=== PATIENT | female | born 1925 | race Caucasian/White ===

== ENCOUNTER 2016-10-26 21:16 | Inpatient (IN) | payer OTHER, MEDICARE ==
--- NOTE | 2016-10-26 21:33 | PDOC ---
History of Present Illness - General History Source: Patient, Family Exam Limitations: No Limitations - History of Present Illness Initial Comments: 10/26/16 22:31 The patient is a 89 year old female, with a significant past medical history AFib(on coumadin), VT, CVA (approximately [id number]), diabetes, CHF, hypertension, and hyperlipidemia, who presents to the emergency department complaining of swelling in her bilateral lower extremities, as well as redness in her legs, chest, and face since yesterday. As per daughter, the patient has had intermittent swelling in her legs in the past, however, the rash in her bilateral lower extremities, face, and chest is new. The daughter reports the swelling is alleviated when the patient uses cold packs and elevates her legs. The patient states she is using a walker, and has had difficulty ambulating. The daughter states the patient has had a shuffled gait and has been SOB when walking. The patient denies any associated chest pain, diaphoresis, or palpitations. The daughter states the patient had been coughing phlegm approximately about a week ago. The patient denies any fever, chills, headache or dizziness. The daughter reports increased urinary frequency (on lasix), but denies any dysuria, urgency, or hematuria. Allergies: codeine, Penicillins Past Surgical History: None reported. Social History: Former smoker (quit in 1969). Denies alcohol or drug use. PCP: Dr. Bird ([phone]) <Tashi Washington - Last Filed: 10/26/16 23:23> <Evelin Baltazar - Last Filed: 10/26/16 23:57> - General Stated Complaint: SWOLLEN/RETAINING FLUIDS Time Seen by Provider: 10/26/16 21:32 Past History <Tashi Washington - Last Filed: 10/26/16 23:23> - Past Medical History Cardiac Disorders: Yes (A-FIB) CVA: Yes Diabetes: Yes HTN: Yes Hypercholesterolemia: Yes - Surgical History Abdominal Surgery: Yes - Psycho/Social/Smoking Cessation Hx Anxiety: No Suicidal Ideation: No Smoking Status: No Smoking History: Former smoker Have you smoked in the past 12 months: No Number of Cigarettes Smoked Daily: 0 If you are a former smoker, when did you quit?: 1970 Hx Alcohol Use: No Drug/Substance Use Hx: No Substance Use Type: None Hx Substance Use Treatment: No <Evelin Baltazar - Last Filed: 10/26/16 23:57> - Past Medical History Allergies/Adverse Reactions: Allergies Allergy/AdvReac Type Severity Reaction Status Date / Time codeine [Codeine] Allergy Verified 10/26/16 21:25 Penicillins Allergy Verified 10/26/16 21:25 Home Medications: Ambulatory Orders Beta-Carotene(A) W-C & E/Min [Ocuvite Tablet] 1 each PO DAILY 07/30/13 Calcium 250Mg/Vit-D 125 Units [Oscal 250 mg+D -] 1 combo PO DAILY 07/30/13 Cholecalciferol (Vitamin D3) [Vitamin D -] 2,000 mg PO DAILY 07/30/13 Glucosa Medina 2Kcl/Chondroitin Medina [Glucosamine & Chondroitin Cap] 1,500 mg PO DAILY 07/30/13 Rosuvastatin [Crestor -] 5 mg PO HS 07/30/13 Furosemide [Lasix -] 20 mg PO DAILY #0 tablet 07/31/13 Warfarin Na [Coumadin -] 3 mg PO DAILY 03/20/14 Aspirin [ASA -] 81 mg PO DAILY 06/30/14 Metoprolol Tartrate [Lopressor -] 50 mg PO BID 06/30/14 Olmesartan Medoxomil [Benicar (Nf)] 40 mg PO DAILY 10/04/14 Trolamine Salicylate [Aspercreme] 177.4 ml TP PRN 10/04/14 Ascorbate Calcium [Vitamin C] 500 mg PO DAILY 10/26/16 Ferrous Sulfate [Feosol] 325 mg PO DAILY 10/26/16 Levomefolate/Algal Oil [Deplin-Algal Oil 15 mg Capsule] 1 each PO DAILY Review of Systems - Review of Systems Able to Perform ROS?: Yes Comments:: 10/26/16 22:32 GENERAL/CONSTITUTIONAL: No fever or chills. No weakness. HEAD, EYES, EARS, NOSE AND THROAT: No change in vision. No ear pain or discharge. No sore throat. CARDIOVASCULAR: +SOB on exertion. No chest pain. RESPIRATORY: +Cough. No wheezing or hemoptysis. GASTROINTESTINAL: No nausea, vomiting, diarrhea or constipation. GENITOURINARY: +Frequency. No dysuria. MUSCULOSKELETAL: +Bilateral swelling of lower extremities. No neck or back pain. SKIN: +Rash in bilateral lower extremities, chest, and face NEUROLOGIC: No headache, vertigo, loss of consciousness, or change in strength/ sensation. ENDOCRINE: No increased thirst. No abnormal weight change. HEMATOLOGIC/LYMPHATIC: No anemia, easy bleeding, or history of blood clots. ALLERGIC/IMMUNOLOGIC: No hives or skin allergy. <Tashi Washington - Last Filed: 10/26/16 23:23> *Physical Exam - Vital Signs Last Vital Signs Temp Pulse Resp BP Pulse Ox 98.1 F 117 H 22 161/107 98 10/26/16 21:34 10/26/16 21:34 10/26/16 21:34 10/26/16 21:34 10/26/16 21:34 - Physical Exam Comments: 10/26/16 22:32 GENERAL: Awake, alert, and fully oriented, in no acute distress HEAD: No signs of trauma EYES: PERRLA, EOMI, sclera anicteric, conjunctiva clear ENT: Auricles normal inspection, hearing grossly normal, nares patent, oropharynx clear without exudates. Moist mucosa NECK: Normal ROM, supple, no lymphadenopathy, JVD, or masses LUNGS: Breath sounds equal, clear to auscultation bilaterally. No wheezes, and no crackles HEART: Regular rate and rhythm, normal S1 and S2, no murmurs, rubs or gallops ABDOMEN: Soft, nontender, normoactive bowel sounds. No guarding, no rebound. No masses EXTREMITIES: 3+ pitting bilateral pitting in the lower extremities with chronic stasis changes. Normal range of motion, no edema. No clubbing or cyanosis. No cords, erythema, or tenderness NEUROLOGICAL: Cranial nerves II through XII grossly intact. Normal speech, normal gait SKIN: Diffuse scattered petechiae. Erythematous raised rash to upper chest at the base of the neck that is excoriated. Warm, Dry, no lesions noted. <Tashi Washington - Last Filed: 10/26/16 23:23> ED Treatment Course - LABORATORY CBC & Chemistry Diagram: 10/26/16 22:15 10/26/16 22:15 - ADDITIONAL ORDERS Additional order review: 10/26/16 22:15 RBC 4.36 MCV 95.8 D MCHC 33.2 RDW 15.6 MPV 10.0 Neutrophils % 71.3 Lymphocytes % 17.8 Monocytes % 7.9 Eosinophils % 1.7 D Basophils % 1.3 <Tashi Washington - Last Filed: 10/26/16 23:23> - LABORATORY CBC & Chemistry Diagram: 10/26/16 22:15 10/26/16 22:15 <Evelin Baltazar - Last Filed: 10/26/16 23:57> Medical Decision Making - Medical Decision Making 10/26/16 23:[address] Bird 23:22. <Tashi Washington - Last Filed: 10/26/16 23:23> - Medical Decision Making Case d/w Dr. Bird. No recent dietary indiscretions, med changes (except she was taken off digoxin), chest pain. She is clearly fluid overloaded. I have written for lasix and a owens catheter. Will admit. I also described the rash on her chest- possibly a drug rash or contact dermatitis. <Evelin Baltazar - Last Filed: 10/26/16 23:57> *DC/Admit/Observation/Transfer - Attestations Scribe Attestion: 10/26/16 22:32 Documentation prepared by Tashi Washington, acting as biomedical electronics technician for Evelin Baltazar MD. <Tashi Washington - Last Filed: 10/26/16 23:23> - Discharge Dispostion Admit: Yes <Evelin Baltazar - Last Filed: 10/26/16 23:57> Diagnosis at time of Disposition: Afib Qualifiers: Atrial fibrillation type: chronic Qualified Code(s): I48.2 - Chronic atrial fibrillation - Discharge Dispostion Condition at time of disposition: Stable - Referrals Referrals: Rajan Bird MD [Primary Care Provider] -
[2016-10-26 22:26] LABS: BASOPHIL 1.3 % (0-2.0); EOSINOPHIL 1.7 % (0-4.5); MCH 31.8 pg (25.7-33.7); MCHC 33.2 g/dl (32.0-36.0); MEAN CELL VOLUME 95.8 fl (80-96); NEUTROPHILS 71.3 % (42.8-82.8); PLATELET COUNT 171 K/MM3 (134-434); RDW 15.6 % (11.6-15.6); WHITE BLOOD COUNT 6.1 K/mm3 (4.0-10.0)
[2016-10-26 22:43] LABS: INR 2.28 (0.82-1.09); PROTHROMBIN TIME (PATIENT) 25.5 SEC (9.98-11.88)
[2016-10-26 23:05] LABS: ALBUMIN 3.8 g/dl (3.4-5.0); ANION GAP 13 (8-16); BILIRUBIN,TOTAL 0.9 mg/dL (0.2-1.0); CALCIUM 8.9 mg/dL (8.5-10.1); CO2 24 mmol/L (21-32); CREATININE 0.9 mg/dL (0.55-1.02); GLUCOSE,RANDOM 152 mg/dL (74-106); SGOT/AST 38 U/L (15-37); SGPT/ALT 50 U/L (12-78)
[2016-10-26 23:08] LABS: ALK PHOS 70 U/L (45-117); TOT PROT 6.7 g/dl (6.4-8.2); TROPONIN I < 0.02 ng/ml (0.00-0.05)
[2016-10-26] MEDS ORDERED: FUROSEMIDE 40 MG/4 ML INJECTABLE VIAL IVPUSH ONE (23:12)
[2016-10-26] MEDS ORDERED: TROLAMINE SALICYLATE TP SCH (23:30)
[2016-10-26] MEDS ORDERED: FUROSEMIDE 40 MG/4 ML INJECTABLE VIAL ONE (23:31)
[2016-10-27 00:46] LABS: URINE APPEARANCE CLEAR; URINE BILIRUBIN NEGATIVE (NEGATIVE); URINE BLOOD NEGATIVE (NEGATIVE); URINE COLOR COLORLESS; URINE GLUCOSE (UA) NEGATIVE (NEGATIVE); URINE KETONE NEGATIVE (NEGATIVE); URINE LEUK ESTERASE NEGATIVE (NEGATIVE); URINE NITRITE NEGATIVE (NEGATIVE); URINE PROTEIN NEGATIVE (NEGATIVE); URINE UROBILINOGEN NEGATIVE E.U./dl (0.2-1.0)
[2016-10-27] MEDS ORDERED: ACETAMINOPHEN 325 MG TABLET (FP) PO ONE (01:22)
[2016-10-27] MEDS ORDERED: ACETAMINOPHEN 325 MG TABLET (FP) ONE (01:28)
[2016-10-27 06:42] LABS: BASOPHIL 0.8 % (0-2.0); EOSINOPHIL 1.2 % (0-4.5); MCH 32.8 pg (25.7-33.7); MCHC 34.6 g/dl (32.0-36.0); MEAN CELL VOLUME 94.8 fl (80-96); MEAN PLT VOLUME 8.6 fl (7.5-11.1); NEUTROPHILS 61.1 % (42.8-82.8); PLATELET COUNT 152 K/MM3 (134-434); WHITE BLOOD COUNT 6.3 K/mm3 (4.0-10.0)
[2016-10-27 06:50] LABS: INR 2.4 (0.82-1.09); PROTHROMBIN TIME (PATIENT) 26.9 SEC (9.98-11.88)
[2016-10-27 07:12] LABS: ALBUMIN 3.2 g/dl (3.4-5.0); ANION GAP 7 (8-16); CALCIUM 7.9 mg/dL (8.5-10.1); CO2 29 mmol/L (21-32); GLUCOSE,RANDOM 116 mg/dL (74-106)
[2016-10-27 07:18] LABS: ALK PHOS 67 U/L (45-117); CREATININE 0.8 mg/dL (0.55-1.02); SGOT/AST 33 U/L (15-37); SGPT/ALT 45 U/L (12-78); TROPONIN I 0.02 ng/ml (0.00-0.05)
[2016-10-27] MEDS ORDERED: PATIENT'S OWN MEDICATION (NON-FORMULARY) (Glucosa Su 2kcl/Chondroitin Su [Glucosamine & Ch PO SCH (10:00)
--- NOTE | 2016-10-27 10:29 | HP ---
Admitting History and Physical - Admission Chief Complaint: leg swelling, redness History of Present Illness: 89 yo female, h/o afib, PVD, presented to hospital after dtr noted legs to be very swollen, having difficulty getting up and down stairs and walking. Patient has been on Lasix at home, sometimes requiring increased doses when her legs do swell, but dtr notes that swelling is worse than it has ever been. patient denies any shortness of breath or chest pain, but dtr notes that patient seemed more out of breath after activities. Patient had been having some altered mental status at home, so digoxin was stopped when her level at home was slightly high. (liekly AMS due to age related cognitive changes). No fevers noted. DId have a rash on chest, which seems to have dissipated after receiving IV lasix in ER. Overnight patient notes significant decrease in leg swelling with IV lasix that was given. History Source: Patient, Family Member Limitations to Obtaining History: No Limitations - Past Medical History CARE ADVOCATE: Yes: CVA Cardiovascular: Yes: AFIB, HTN, Hyperlipdemia Musculoskeletal: Yes: Chronic low back pain (spinal stenosis), Other (Upper backache) Endocrine: Yes: Diabetes Mellitus ((diet controlled)) - Smoking History Smoking history: Former smoker Have you smoked in the past 12 months: No Aproximately how many cigarettes per day: 0 If you are a former smoker, when did you quit?: 1969 - Alcohol/Substance Use Hx Alcohol Use: No - Social History Usual Living Arrangement: Yes: With Child Home Medications - Allergies Allergies/Adverse Reactions: Allergies Allergy/AdvReac Type Severity Reaction Status Date / Time codeine [Codeine] Allergy Verified 10/26/16 21:25 Penicillins Allergy Verified 10/26/16 21:25 - Home Medications Home Medications: Ambulatory Orders Beta-Carotene(A) W-C & E/Min [Ocuvite Tablet] 1 each PO DAILY 07/30/13 Calcium 250Mg/Vit-D 125 Units [Oscal 250 mg+D -] 1 combo PO DAILY 07/30/13 Cholecalciferol (Vitamin D3) [Vitamin D -] 2,000 mg PO DAILY 07/30/13 Glucosa Medina 2Kcl/Chondroitin Medina [Glucosamine & Chondroitin Cap] 1,500 mg PO DAILY 07/30/13 Rosuvastatin [Crestor -] 5 mg PO HS 07/30/13 Furosemide [Lasix -] 20 mg PO DAILY #0 tablet 07/31/13 Warfarin Na [Coumadin -] 3 mg PO DAILY 03/20/14 Aspirin [ASA -] 81 mg PO DAILY 06/30/14 Metoprolol Tartrate [Lopressor -] 50 mg PO BID 06/30/14 Olmesartan Medoxomil [Benicar (Nf)] 40 mg PO DAILY 10/04/14 Trolamine Salicylate [Aspercreme] 177.4 ml TP PRN 10/04/14 Ascorbate Calcium [Vitamin C] 500 mg PO DAILY 10/26/16 Ferrous Sulfate [Feosol] 325 mg PO DAILY 10/26/16 Levomefolate/Algal Oil [Deplin-Algal Oil 15 mg Capsule] 1 each PO DAILY Family Disease History - Family Disease History Family Disease History: Heart Disease: Brother ([place]) Review of Systems - Review of Systems Constitutional: denies: Fever, Lethargy, Loss of Appetite Eyes: reports: No Symptoms HENT: denies: Difficult Swallowing, Epistaxis Cardiovascular: denies: Chest Pain, Palpitations Respiratory: reports: SOB on Exertion. denies: Wheezing Gastrointestinal: denies: Abdominal Pain, Bloating, Diarrhea, Nausea, Vomiting Genitourinary: denies: Burning, Discharge, Dysuria Physical Examination Vital Signs: Vital Signs Temperature 98.1 F 10/27/16 02:00 Pulse Rate 90 10/27/16 05:55 Respiratory Rate 16 10/27/16 05:55 Blood Pressure 161/96 10/27/16 05:55 O2 Sat by Pulse Oximetry (%) 93 L 10/27/16 05:55 Constitutional: Yes: Well Nourished, No Distress, Calm Eyes: Yes: Conjunctiva Clear, EOM Intact, PERRL HENT: Yes: Atraumatic, Normocephalic Neck: Yes: Supple, Trachea Midline Cardiovascular: Yes: Pulse Irregular, S1, S2. No: Murmur Respiratory: Yes: Regular, CTA Bilaterally. No: Rhonchi, Wheezes Gastrointestinal: Yes: Normal Bowel Sounds, Soft. No: Distention, Tenderness Edema: Yes Edema: LLE: 2+, RLE: 2+ Integumentary: Yes: Rash (fading maculopapular rash on chest) Neurological: Yes: Alert, Oriented Labs: CBC, BMP 10/27/16 06:15 10/27/16 06:15 Imaging - Results Chest X-ray: Report Reviewed (congestive changes noted) Problem List - Problems (1) Congestive heart failure (CHF) Assessment/Plan: -check echo -IV lasix, cardio eval -on ARB Code(s): I50.9 - HEART FAILURE, UNSPECIFIED Qualifiers: Congestive heart failure type: diastolic (2) Atrial fibrillation with rapid ventricular response Assessment/Plan: -follow with IV lasix -cont coumadin, B-carli for rate control Code(s): I48.91 - UNSPECIFIED ATRIAL FIBRILLATION (3) CVA (cerebrovascular accident) Assessment/Plan: -h/o CVA -on coumadin for Afib Code(s): I63.9 - CEREBRAL INFARCTION, UNSPECIFIED (4) Hyperlipidemia Assessment/Plan: -cont statin Code(s): E78.5 - HYPERLIPIDEMIA, UNSPECIFIED (5) Hypertension Assessment/Plan: -on metoprolol and diovan Code(s): I10 - ESSENTIAL (PRIMARY) HYPERTENSION
[2016-10-27] MEDS ORDERED: VALSARTAN 80 MG TABLET (UD) ONE (10:36)
[2016-10-27] MEDS: METOPROLOL TARTRATE 50 MG TABLET (FP) PO SCH ×2 (10:45→22:19)
[2016-10-27] MEDS: ASPIRIN 81 MG CHEWABLE TABLETS PO SCH (10:45)
[2016-10-27] MEDS: FERROUS SO4 325 MG TABLET (FP) PO SCH (10:45)
[2016-10-27] MEDS: FUROSEMIDE 40 MG/4 ML INJECTABLE VIAL IVPUSH SCH (10:45)
[2016-10-27] MEDS: CHOLECALCIFEROL (VITAMIN D3) 400 UNIT TABLET (FP) PO SCH (10:45)
[2016-10-27] MEDS: CALCIUM 250MG/VIT-D 125 UNITS 1 COMBO TABLET PO SCH (10:45)
[2016-10-27] MEDS: ASCORBIC ACID 500 MG TABLET (FP) PO SCH (10:45)
[2016-10-27] MEDS: VALSARTAN 160 MG TABLET (UD) PO SCH (10:45)
[2016-10-27] MEDS: DONEPEZIL HCL 10 MG TABLET (FP) PO SCH (11:38)
--- NOTE | 2016-10-27 11:53 | CON.CARD ---
Consult Consult Specialty:: Cardiology Referred by:: Dr. Bird Reason for Consultation:: Edema - History of Present Illness Chief Complaint: Edema, redness History of Present Illness: 89 year old woman with a history of HTN, HLD, DM II, Severe LVH, CAD-non- obstructive on cardiac cath 2013, Afib on coumadin, CVA, chronic diastolic CHF admitted with b/l LE edema, and total body redness, dyspnea on exertion. Pt. seen and examined today in nad. she states that she is already feeling better. her LE is significantly improved.. no sob at rest. 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 Cardio/Vascular: Yes: AFIB, CHF (chronic diastolic), HTN, Hyperlipdemia, Other ( left ventricular hypertrophy) Musculoskeletal: Yes: Chronic low back pain (spinal stenosis), Other (Upper backache) Endocrine: Yes: Diabetes Mellitus ((diet controlled)) - Alcohol/Substance Use Hx Alcohol Use: No - Smoking History Smoking history: Former smoker Have you smoked in the past 12 months: No Aproximately how many cigarettes per day: 0 If you are a former smoker, when did you quit?: 1969 - Social History Usual Living Arrangement: With Child ADL: Family Assistance History of Recent Travel: No Home Medications - Allergies Allergies/Adverse Reactions: Allergies Allergy/AdvReac Type Severity Reaction Status Date / Time codeine [Codeine] Allergy Verified 10/26/16 21:25 Penicillins Allergy Verified 10/26/16 21:25 - Home Medications Home Medications: Ambulatory Orders Beta-Carotene(A) W-C & E/Min [Ocuvite Tablet] 1 each PO DAILY 07/30/13 Calcium 250Mg/Vit-D 125 Units [Oscal 250 mg+D -] 1 combo PO DAILY 07/30/13 Cholecalciferol (Vitamin D3) [Vitamin D -] 2,000 mg PO DAILY 07/30/13 Glucosa Medina 2Kcl/Chondroitin Medina [Glucosamine & Chondroitin Cap] 1,500 mg PO DAILY 07/30/13 Rosuvastatin [Crestor -] 5 mg PO HS 07/30/13 Furosemide [Lasix -] 20 mg PO DAILY #0 tablet 07/31/13 Warfarin Na [Coumadin -] 3 mg PO DAILY 03/20/14 Aspirin [ASA -] 81 mg PO DAILY 06/30/14 Metoprolol Tartrate [Lopressor -] 50 mg PO BID 06/30/14 Olmesartan Medoxomil [Benicar (Nf)] 40 mg PO DAILY 10/04/14 Trolamine Salicylate [Aspercreme] 177.4 ml TP PRN 10/04/14 Ascorbate Calcium [Vitamin C] 500 mg PO DAILY 10/26/16 Ferrous Sulfate [Feosol] 325 mg PO DAILY 10/26/16 Levomefolate/Algal Oil [Deplin-Algal Oil 15 mg Capsule] 1 each PO DAILY Donepezil HCl [Aricept -] 0 mg PO DAILY 10/27/16 Family Disease History - Family Disease History Family Disease History: Heart Disease: Brother ([place]) Review of Systems - Review of Systems Constitutional: reports: Weakness. denies: No Symptoms, Chills, Diaphoresis, Fever, Lethargy, Loss of Appetite, Malaise, Night Sweats, Unintentional Wgt. Loss, Other Eyes: denies: No Symptoms, Blind Spots, Blurred Vision, Double Vision, Eye Pain , Floaters, Photophobia, Recent Change in Vision, Other HENT: denies: No Symptoms, Difficult Swallowing, Ear Discharge, Ear Pain, Epistaxis, Gingival Bleeding, Hearing Loss, Mouth Swelling, Nasal Congestion, Ocular Prosthesis, Throat Pain, Toothache, Ringing in Ears, Other Neck: denies: No Symptoms, Decreased ROM, Lumps, Pain on Movement, Stiffness, Swollen Glands, Tenderness, Other Cardiovascular: reports: Edema, Shortness of Breath. denies: No Symptoms, Chest Pain, Palpitations, Other Respiratory: reports: Exercise Intolerance, SOB, SOB on Exertion. denies: No Symptoms, Cough, Hemoptysis, Orthopnea, PND, Snoring, Wheezing, Other Gastrointestinal: denies: No Symptoms, Abdominal Pain, Bloating, Constipation, Diarrhea, Dysphagia, Indigestion, Melena, Nausea, Rectal Bleeding, Vomiting, Vomiting Blood, Other Genitourinary: denies: No Symptoms, Burning, Discharge, Dysuria, Flank Pain, Frequency, Hematuria, Incontinence, Lesions, Menses, Pain, Testicular Mass, Testicular Pain, Testicular Swelling, Urgency, Vaginal Bleeding, Other Breasts: denies: No Symptoms Reported, See HPI, Breast Implants, Discharge from Nipple, Lumps, Pain, Skin Changes, Other Musculoskeletal: denies: No Symptoms, Back Pain, Crepitus, Decreased ROM, Extremity Pain, Joint Pain, Joint Swelling, Muscle Pain, Muscle Cramps, Muscle Weakness, Other Integumentary: denies: No Symptoms, Blister, Bruising, Change in Color, Eczema, Erythema, Incision, Lesions, Lump, Pallor, Pruritis, Rash, Wound, Other Neurological: denies: No Symptoms, Change in LOC, Change in Speech, Confusion, Dizziness, Headache, Incoordination, Numbness, Parasthesia, Pre-Existing Deficit , Seizure, Syncope, Tremors, Unsteady Gait, Weakness, Other Endocrine: denies: No Symptoms, Excessive Sweating, Flushing, Increased Hunger, Increased Thirst, Intolerance to Cold, Intolerance to Heat, Unexplained Weight Gain, Unexplained Weight Loss, Other Hematology/Lymphatic: denies: No Symptoms, Easily Bruised, Excessive Bleeding, Swollen Glands, Other Psychiatric: denies: No Symptoms, Altered Sleep Pattern, Anxiety, Depression, Hallucinations, Panic, Paranoia, Suicidal, Other - Risk Factors Known Risk Factors: Yes: Age, Hypercholesterolemia, Hypertension Vital Signs: Vital Signs Temperature 98.1 F 10/27/16 02:00 Pulse Rate 90 10/27/16 05:55 Respiratory Rate 16 10/27/16 05:55 Blood Pressure 161/96 10/27/16 05:55 O2 Sat by Pulse Oximetry (%) 93 L 10/27/16 05:55 Constitutional: Yes: Well Nourished, No Distress, Calm Eyes: Yes: WNL, Conjunctiva Clear, EOM Intact, PERRL HENT: Yes: WNL, Atraumatic, Normocephalic Neck: Yes: WNL, Supple, Trachea Midline Respiratory: Yes: Regular, Diminished, SOB on Exertion. No: Rales, Rhonchi, Wheezes Gastrointestinal: Yes: WNL, Normal Bowel Sounds, Soft. No: Distention, Tenderness Renal/: Yes: WNL Cardiovascular: Yes: Pulse Irregular. No: Bradycardia, Tachycardia, Gallop, Rub , Varicosities JVD: No Carotid Bruit: No PMI: Non-Displaced Heart Sounds: Yes: S1, S2. No: Split S2, S3, S4, Clicks, Gallop, Rub, Bruit Murmur: No: Systolic Murmur, Diastolic Murmur Musculoskeletal: Yes: Muscle Weakness Extremities: Yes: WNL Edema: Yes Edema: LLE: Trace, RLE: Trace Peripheral Pulses WNL: Yes Peripheral Pulses: 2+ Left Doralis Pedis, 2+ Right Dorsalis Pedis Integumentary: Yes: WNL Neurological: Yes: Alert, Oriented Psychiatric: Yes: Alert, Oriented - Other Data Labs, Other Data: CBC, BMP 10/27/16 06:15 10/27/16 06:15 INR, PTT INR 2.40 (0.82-1.09) H 10/27/16 06:15 Troponin, BNP 10/27/16 06:15 Troponin I 0.02 Troponin, BNP 10/27/16 06:15 Troponin I 0.02 ekg-not in chart, will review Echo: Report Reviewed Imaging - Results Chest X-ray: Report Reviewed, Image Reviewed EKG: Report Reviewed, Image Reviewed Other: Report Reviewed, Image Reviewed Problem List - Problems (1) Afib Code(s): I48.91 - UNSPECIFIED ATRIAL FIBRILLATION Qualifiers: Atrial fibrillation type: chronic Qualified Code(s): I48.2 - Chronic atrial fibrillation (2) CVA (cerebrovascular accident) Code(s): I63.9 - CEREBRAL INFARCTION, UNSPECIFIED (3) Congestive heart failure (CHF) Code(s): I50.9 - HEART FAILURE, UNSPECIFIED Qualifiers: Congestive heart failure type: diastolic (4) Dyspnea on exertion Code(s): R06.09 - OTHER FORMS OF DYSPNEA (5) Hyperlipidemia Code(s): E78.5 - HYPERLIPIDEMIA, UNSPECIFIED (6) Hypertension Code(s): I10 - ESSENTIAL (PRIMARY) HYPERTENSION (7) Peripheral edema Code(s): R60.9 - EDEMA, UNSPECIFIED Assessment/Plan 89 year old woman with a history of HTN, HLD, DM II, LVH, [id number] on cardiac cath 2013, Afib on coumadin, CVA, chronic diastolic CHF admitted with b/l LE edema, and total body redness, dyspnea on exertion. Edema/dyspnea on exertion -likely acute on chronic diastolic CHF -improving significantly with IV Lasix -cont IV lasix at current dose -monitor strict I/Os and daily weights -echo tomorrow to re-evaluate for structural heart disease Atrial fibrillation-HR is currently adequately controlled -digoxin stopped as outpatient level reportedly elevated with possible contribution to AMS -cont bblocker -cont coumadin for goal INR 2-3 -monitor HR and plan to adjust meds as needed HTN-above goal -cont metoprolol and diovan
[2016-10-27 12:06] VITALS: BMI 27.3
[2016-10-27] MEDS ORDERED: WARFARIN NA 1 MG TABLET (FP) ONE (18:40)
[2016-10-27] MEDS: WARFARIN NA 3 MG TABLET PO SCH (18:41)
[2016-10-27] MEDS ORDERED: QUEtiapine FUMARATE 25 MG TABLET (FP) PO PRN (21:22)
[2016-10-27] MEDS ORDERED: POTASSIUM CHLORIDE TABS 20 MEQ TABLET.ER (FP) PO ONE (21:22)
[2016-10-27] MEDS: ROSUVASTATIN CA 5 MG TABLET (FP) PO SCH (22:19)
--- NOTE | 2016-10-27 23:26 | EKG ---
Test Reason : Blood Pressure : / mmHG Vent. Rate : 096 BPM Atrial Rate : 081 BPM P-R Int : 000 ms QRS Dur : 082 ms QT Int : 360 ms P-R-T Axes : 000 022 120 degrees QTc Int : 454 ms ATRIAL FIBRILLATION CANNOT RULE OUT ANTERIOR INFARCT , AGE UNDETERMINED ABNORMAL ECG WHEN COMPARED WITH ECG OF 04-OCT-2014 15:55, Confirmed by TAPAN BURRIS MD ([id number]) on 10/27/2016 11:25:51 PM Referred By: Confirmed By:TAPAN BURRIS MD
[2016-10-28] MEDS ORDERED: LORazepam 0.5 MG TABLET ONE (00:26)
[2016-10-28] MEDS ORDERED: LORazepam 0.5 MG TABLET PO ONE (00:30)
[2016-10-28 07:20] LABS: INR 2.42 (0.82-1.09); PROTHROMBIN TIME (PATIENT) 27.1 SEC (9.98-11.88)
[2016-10-28 08:24] LABS: CREATININE 0.8 mg/dL (0.55-1.02)
[2016-10-28] MEDS: FUROSEMIDE 40 MG/4 ML INJECTABLE VIAL IVPUSH SCH (09:34)
[2016-10-28] MEDS: METOPROLOL TARTRATE 50 MG TABLET (FP) PO SCH ×2 (09:34→21:22)
[2016-10-28] MEDS: VALSARTAN 160 MG TABLET (UD) PO SCH (09:35)
[2016-10-28] MEDS: ASPIRIN 81 MG CHEWABLE TABLETS PO SCH (09:35)
[2016-10-28] MEDS: CALCIUM 250MG/VIT-D 125 UNITS 1 COMBO TABLET PO SCH (09:35)
[2016-10-28] MEDS: DONEPEZIL HCL 10 MG TABLET (FP) PO SCH (09:35)
[2016-10-28] MEDS: ASCORBIC ACID 500 MG TABLET (FP) PO SCH (09:35)
[2016-10-28] MEDS: CHOLECALCIFEROL (VITAMIN D3) 400 UNIT TABLET (FP) PO SCH (09:35)
[2016-10-28] MEDS: FERROUS SO4 325 MG TABLET (FP) PO SCH (09:35)
[2016-10-28] MEDS ORDERED: POTASSIUM CHLORIDE TABS 20 MEQ TABLET.ER (FP) PO SCH (10:00)
--- NOTE | 2016-10-28 12:07 | PN ---
Progress Note, Physician History of Present Illness: seen and examined today, sleeping. daughter at bedside states pt did not sleep all night, was confused last night, given some sedatives, finally fell asleep this am. daughter states her LE edema is better. - Current Medication List Current Medications: Active Medications Ascorbic Acid (Vitamin C -) 500 mg PO DAILY [facility] Last Admin: 10/28/16 09:35 Dose: 500 mg Aspirin (Asa -) 81 mg PO DAILY [facility] Last Admin: 10/28/16 09:35 Dose: 81 mg Calcium/Vitamin D (Oscal 250 Mg+D -) 1 tab PO DAILY [facility] Last Admin: 10/28/16 09:35 Dose: 1 tab Cholecalciferol (Vitamin D3 -) 400 unit PO DAILY [facility] Last Admin: 10/28/16 09:35 Dose: 400 unit Donepezil HCl (Aricept -) 10 mg PO DAILY [facility] Last Admin: 10/28/16 09:35 Dose: 10 mg Ferrous Sulfate (Feosol -) 325 mg PO DAILY [facility] Last Admin: 10/28/16 09:35 Dose: 325 mg Furosemide (Lasix Injection -) 40 mg IVPUSH DAILY [facility] Last Admin: 10/28/16 09:34 Dose: 40 mg Metoprolol Tartrate (Lopressor -) 50 mg PO BID [facility] Last Admin: 10/28/16 09:34 Dose: 50 mg Non-Formulary Medication (Beta-Carotene(A) W-C & E/Min [Ocuvite Tablet]) 1 each PO DAILY [facility] Non-Formulary Medication (Glucosa [place] 2kcl/Chondroitin [place] [Glucosamine & Chondroitin Cap]) 1,500 mg PO DAILY [facility] Non-Formulary Medication (Trolamine Salicylate [Aspercreme]) 177.4 ml TP PRN [facility] Potassium Chloride (K-Dur -) 20 meq PO DAILY [facility] Last Admin: 10/28/16 09:35 Dose: 20 meq Quetiapine Fumarate (Seroquel -) 12.5 mg PO HS PRN PRN Reason: AGITATION Last Admin: 10/27/16 22:20 Dose: 12.5 mg Rosuvastatin Calcium (Crestor -) 5 mg PO HS [facility] Last Admin: 10/27/16 22:19 Dose: 5 mg Valsartan (Diovan -) 320 mg PO DAILY [facility] Last Admin: 10/28/16 09:35 Dose: 320 mg Warfarin Sodium (Coumadin -) 3 mg PO DAILY@1800 [facility] Last Admin: 10/27/16 18:41 Dose: 3 mg - Objective Vital Signs: Vital Signs Temperature 98.1 F 10/28/16 07:44 Pulse Rate 97 H 10/28/16 07:44 Respiratory Rate 18 10/28/16 07:49 Blood Pressure 139/82 10/28/16 07:44 O2 Sat by Pulse Oximetry (%) 99 10/28/16 07:49 Constitutional: Yes: Well Nourished, No Distress, Calm Eyes: Yes: WNL, Conjunctiva Clear, EOM Intact, PERRL HENT: Yes: WNL, Atraumatic, Normocephalic Neck: Yes: WNL, Supple, Trachea Midline Cardiovascular: Yes: Pulse Irregular, S1, S2. No: Regular Rate and Rhythm, Bradycardia, Tachycardia, Bruit, JVD, Gallop, Murmur, Rub, S3, S4, Varicosities Respiratory: Yes: Regular, Diminished, Rales. No: Rhonchi, SOB, Wheezes Gastrointestinal: Yes: WNL, Normal Bowel Sounds, Soft. No: Distention, Tenderness Musculoskeletal: Yes: WNL Extremities: Yes: WNL Edema: Yes Edema: LLE: Trace, RLE: Trace Peripheral Pulses WNL: Yes Peripheral Pulses: Left Doralis Pedis: 2+, Right Dorsalis Pedis: 2+ Integumentary: Yes: WNL Neurological: Yes: WNL, Alert, Oriented, Cran Nerves II-XII Intact ...Motor Strength: WNL Psychiatric: Yes: WNL, Alert, Oriented Labs: CBC, BMP 10/27/16 06:15 10/28/16 05:35 INR, PTT INR 2.42 (0.82-1.09) H 10/28/16 05:35 - ....Imaging Chest X-ray: Report Reviewed, Image Reviewed EKG: Report Reviewed, Image Reviewed Other: Report Reviewed, Image Reviewed (tele-AFib, HR controlled, episode rvr around 3am) Problem List - Problems (1) Afib Code(s): I48.91 - UNSPECIFIED ATRIAL FIBRILLATION Qualifiers: Atrial fibrillation type: chronic Qualified Code(s): I48.2 - Chronic atrial fibrillation (2) CVA (cerebrovascular accident) Code(s): I63.9 - CEREBRAL INFARCTION, UNSPECIFIED (3) Congestive heart failure (CHF) Code(s): I50.9 - HEART FAILURE, UNSPECIFIED Qualifiers: Congestive heart failure type: diastolic (4) Dyspnea on exertion Code(s): R06.09 - OTHER FORMS OF DYSPNEA (5) Hyperlipidemia Code(s): E78.5 - HYPERLIPIDEMIA, UNSPECIFIED (6) Hypertension Code(s): I10 - ESSENTIAL (PRIMARY) HYPERTENSION (7) Peripheral edema Code(s): R60.9 - EDEMA, UNSPECIFIED Assessment/Plan 89 year old woman with a history of HTN, HLD, DM II, LVH, [id number] on cardiac cath 2013, Afib on coumadin, CVA, chronic diastolic CHF admitted with b/l LE edema, and total body redness, dyspnea on exertion. Edema/dyspnea on exertion-likely acute on chronic diastolic CHF -improving -cont IV lasix at current dose -monitor strict I/Os and daily weights -f/up echo to re-evaluate for structural heart disease Atrial fibrillation-HR is currently adequately controlled -digoxin stopped as outpatient level reportedly elevated with possible contribution to AMS -cont bblocker at current dose for now -cont coumadin for goal INR 2-3 -monitor HR and plan to adjust meds as needed HTN-adequately controlled for now -cont metoprolol and diovan
--- NOTE | 2016-10-28 17:27 | PN ---
Progress Note, Physician Chief Complaint: Patient very lethargic but arousable. Daughter at bedside states patient was awake most of the night. States leg swelling is better. - Current Medication List Current Medications: Active Medications Ascorbic Acid (Vitamin C -) 500 mg PO DAILY [facility] Last Admin: 10/28/16 09:35 Dose: 500 mg Aspirin (Asa -) 81 mg PO DAILY [facility] Last Admin: 10/28/16 09:35 Dose: 81 mg Calcium/Vitamin D (Oscal 250 Mg+D -) 1 tab PO DAILY [facility] Last Admin: 10/28/16 09:35 Dose: 1 tab Cholecalciferol (Vitamin D3 -) 400 unit PO DAILY [facility] Last Admin: 10/28/16 09:35 Dose: 400 unit Donepezil HCl (Aricept -) 10 mg PO DAILY [facility] Last Admin: 10/28/16 09:35 Dose: 10 mg Ferrous Sulfate (Feosol -) 325 mg PO DAILY [facility] Last Admin: 10/28/16 09:35 Dose: 325 mg Furosemide (Lasix Injection -) 40 mg IVPUSH DAILY [facility] Last Admin: 10/28/16 09:34 Dose: 40 mg Metoprolol Tartrate (Lopressor -) 50 mg PO BID [facility] Last Admin: 10/28/16 09:34 Dose: 50 mg Non-Formulary Medication (Beta-Carotene(A) W-C & E/Min [Ocuvite Tablet]) 1 each PO DAILY [facility] Non-Formulary Medication (Glucosa [place] 2kcl/Chondroitin [place] [Glucosamine & Chondroitin Cap]) 1,500 mg PO DAILY [facility] Non-Formulary Medication (Trolamine Salicylate [Aspercreme]) 177.4 ml TP PRN [facility] Potassium Chloride (K-Dur -) 20 meq PO BID [facility] Quetiapine Fumarate (Seroquel -) 12.5 mg PO HS PRN PRN Reason: AGITATION Last Admin: 10/27/16 22:20 Dose: 12.5 mg Rosuvastatin Calcium (Crestor -) 5 mg PO HS [facility] Last Admin: 10/27/16 22:19 Dose: 5 mg Valsartan (Diovan -) 320 mg PO DAILY [facility] Last Admin: 10/28/16 09:35 Dose: 320 mg Warfarin Sodium (Coumadin -) 3 mg PO DAILY@1800 [facility] Last Admin: 10/27/16 18:41 Dose: 3 mg - Objective Vital Signs: Vital Signs Temperature 98.4 F 10/28/16 14:00 Pulse Rate 82 10/28/16 14:00 Respiratory Rate 20 10/28/16 14:00 Blood Pressure 118/66 10/28/16 14:00 O2 Sat by Pulse Oximetry (%) 99 10/28/16 07:49 Constitutional: Yes: No Distress, Other (lethargic) Cardiovascular: Yes: Pulse Irregular. No: Tachycardia, Gallop, Murmur, Rub Respiratory: Yes: Regular, CTA Bilaterally. No: Rales, Rhonchi, Wheezes Gastrointestinal: Yes: Normal Bowel Sounds, Soft. No: Distention, Tenderness Extremities: Yes: WNL Edema: No Labs: CBC, BMP 10/27/16 06:15 10/28/16 05:35 INR, PTT INR 2.42 (0.82-1.09) H 10/28/16 05:35 Assessment/Plan (1) Congestive heart failure (CHF) Assessment/Plan: -ECHO c/w diastolic dysfunction -cardiology following and diuresing -continue diovan and lopressor -continue IV lasix per cardiology Code(s): I50.9 - HEART FAILURE, UNSPECIFIED Qualifiers: Congestive heart failure type: diastolic (2) Atrial fibrillation with rapid ventricular response Assessment/Plan: -rate controlled -therapeutic on coumadin -continue lopressor Code(s): I48.91 - UNSPECIFIED ATRIAL FIBRILLATION (3) CVA (cerebrovascular accident) Assessment/Plan: -h/o CVA -on coumadin for Afib Code(s): I63.9 - CEREBRAL INFARCTION, UNSPECIFIED (4) Hyperlipidemia Assessment/Plan: -cont statin Code(s): E78.5 - HYPERLIPIDEMIA, UNSPECIFIED (5) Hypertension Assessment/Plan: -on metoprolol and diovan Code(s): I10 - ESSENTIAL (PRIMARY) HYPERTENSION (6) Hypokalemia -change to bid potassium
[2016-10-28] MEDS: WARFARIN NA 3 MG TABLET PO SCH (17:39)
[2016-10-28] MEDS: POTASSIUM CHLORIDE TABS 20 MEQ TABLET.ER (FP) PO SCH (21:21)
[2016-10-28] MEDS: ROSUVASTATIN CA 5 MG TABLET (FP) PO SCH (23:30)
[2016-10-29 07:43] LABS: BASOPHIL 0.8 % (0-2.0); EOSINOPHIL 2.1 % (0-4.5); MCH 32.1 pg (25.7-33.7); MCHC 33.7 g/dl (32.0-36.0); MEAN CELL VOLUME 95.3 fl (80-96); MEAN PLT VOLUME 9.4 fl (7.5-11.1); NEUTROPHILS 61.5 % (42.8-82.8); PLATELET COUNT 166 K/MM3 (134-434); RDW 15.3 % (11.6-15.6); WHITE BLOOD COUNT 6.6 K/mm3 (4.0-10.0)
[2016-10-29 08:23] LABS: CALCIUM 8.2 mg/dL (8.5-10.1); CREATININE 0.8 mg/dL (0.55-1.02); MAGNESIUM 2.2 mg/dL (1.8-2.4); PHOSPHOROUS 3.2 mg/dL (2.5-4.9)
--- NOTE | 2016-10-29 09:48 | PN ---
Progress Note, Physician Chief Complaint: appears comfortable TELE: AF with average rate 90s. No sig. pauses or sustained elevated rates. History of Present Illness: diuresed well according to Is and Os - Current Medication List Current Medications: Active Medications Ascorbic Acid (Vitamin C -) 500 mg PO DAILY [facility] Last Admin: 10/28/16 09:35 Dose: 500 mg Aspirin (Asa -) 81 mg PO DAILY [facility] Last Admin: 10/28/16 09:35 Dose: 81 mg Calcium/Vitamin D (Oscal 250 Mg+D -) 1 tab PO DAILY [facility] Last Admin: 10/28/16 09:35 Dose: 1 tab Cholecalciferol (Vitamin D3 -) 400 unit PO DAILY [facility] Last Admin: 10/28/16 09:35 Dose: 400 unit Donepezil HCl (Aricept -) 10 mg PO DAILY [facility] Last Admin: 10/28/16 09:35 Dose: 10 mg Ferrous Sulfate (Feosol -) 325 mg PO DAILY [facility] Last Admin: 10/28/16 09:35 Dose: 325 mg Furosemide (Lasix Injection -) 40 mg IVPUSH DAILY [facility] Last Admin: 10/28/16 09:34 Dose: 40 mg Metoprolol Tartrate (Lopressor -) 50 mg PO BID [facility] Last Admin: 10/28/16 21:22 Dose: 50 mg Potassium Chloride (K-Dur -) 20 meq PO BID [facility] Last Admin: 10/28/16 21:21 Dose: 20 meq Quetiapine Fumarate (Seroquel -) 12.5 mg PO HS PRN PRN Reason: AGITATION Last Admin: 10/27/16 22:20 Dose: 12.5 mg Rosuvastatin Calcium (Crestor -) 5 mg PO HS [facility] Last Admin: 10/28/16 23:30 Dose: 5 mg Valsartan (Diovan -) 320 mg PO DAILY [facility] Last Admin: 10/28/16 09:35 Dose: 320 mg Warfarin Sodium (Coumadin -) 3 mg PO DAILY@1800 [facility] Last Admin: 10/28/16 17:39 Dose: 3 mg - Objective Vital Signs: Vital Signs Temperature 98.3 F 10/29/16 05:46 Pulse Rate 96 H 10/29/16 05:46 Respiratory Rate 20 10/29/16 05:46 Blood Pressure 154/86 10/29/16 05:46 O2 Sat by Pulse Oximetry (%) 99 10/28/16 21:00 Constitutional: Yes: No Distress Cardiovascular: Yes: Pulse Irregular Respiratory: Yes: Other (slight decreased breath sounds at bases o/w clear) Gastrointestinal: Yes: Soft Edema: Yes Edema: LLE: Trace, RLE: Trace Neurological: Yes: Alert Labs: CBC, BMP 10/29/16 05:40 10/29/16 05:40 INR, PTT INR 2.42 (0.82-1.09) H 10/28/16 05:35 Laboratory Tests 10/26/16 10/27/16 10/28/16 22:15 06:15 05:35 WBC Hct Plt Count INR 2.42 H Sodium Potassium BUN Creatinine Magnesium Troponin I < 0.02 0.02 10/29/16 10/29/16 05:40 05:40 WBC 6.6 Hct 42.7 Plt Count 166 INR Sodium 142 Potassium 3.8 D BUN 23 H Creatinine 0.8 Magnesium 2.2 D Troponin I - ....Imaging EKG: Image Reviewed Assessment/Plan Assessment/Plan 89 year old woman with a history of HTN, HLD, DM II, LVH, [id number] on cardiac cath 2013, Afib on coumadin, CVA, chronic diastolic CHF admitted with b/l LE edema, dyspnea on exertion. Edema/dyspnea on exertion-likely acute on chronic diastolic CHF -improving -cont IV lasix for today and switch to PO tomorrow. On ARB. -f/up echo showed normal LVEF but increased atrial size c/w worsened diastolic CHF, elevated EDP (likely chronic). Atrial fibrillation-HR is currently adequately controlled -digoxin stopped as outpatient level reportedly elevated with possible contribution to AMS -cont bblocker at current dose for now -cont coumadin for goal INR 2-3
[2016-10-29] MEDS: ASCORBIC ACID 500 MG TABLET (FP) PO SCH (11:05)
[2016-10-29] MEDS: CHOLECALCIFEROL (VITAMIN D3) 400 UNIT TABLET (FP) PO SCH (11:05)
[2016-10-29] MEDS: ASPIRIN 81 MG CHEWABLE TABLETS PO SCH (11:06)
[2016-10-29] MEDS: VALSARTAN 160 MG TABLET (UD) PO SCH (11:06)
[2016-10-29] MEDS: POTASSIUM CHLORIDE TABS 20 MEQ TABLET.ER (FP) PO SCH ×2 (11:06→22:30)
[2016-10-29] MEDS: METOPROLOL TARTRATE 50 MG TABLET (FP) PO SCH ×2 (11:06→22:30)
[2016-10-29] MEDS: FERROUS SO4 325 MG TABLET (FP) PO SCH (11:06)
[2016-10-29] MEDS: FUROSEMIDE 40 MG/4 ML INJECTABLE VIAL IVPUSH SCH (11:06)
[2016-10-29] MEDS: CALCIUM 250MG/VIT-D 125 UNITS 1 COMBO TABLET PO SCH (11:06)
[2016-10-29] MEDS: DONEPEZIL HCL 10 MG TABLET (FP) PO SCH (11:06)
--- NOTE | 2016-10-29 13:26 | PN ---
Progress Note, Physician Chief Complaint: Patient much improved today. Says she is feeling fine and is without complaint. No cp, sob, n/v. Swelling has resolved. Daughter at bedside and says she is much improved. - Current Medication List Current Medications: Active Medications Ascorbic Acid (Vitamin C -) 500 mg PO DAILY [facility] Last Admin: 10/29/16 11:05 Dose: 500 mg Aspirin (Asa -) 81 mg PO DAILY [facility] Last Admin: 10/29/16 11:06 Dose: 81 mg Calcium/Vitamin D (Oscal 250 Mg+D -) 1 tab PO DAILY [facility] Last Admin: 10/29/16 11:06 Dose: 1 tab Cholecalciferol (Vitamin D3 -) 400 unit PO DAILY [facility] Last Admin: 10/29/16 11:05 Dose: 400 unit Donepezil HCl (Aricept -) 10 mg PO DAILY [facility] Last Admin: 10/29/16 11:06 Dose: 10 mg Ferrous Sulfate (Feosol -) 325 mg PO DAILY [facility] Last Admin: 10/29/16 11:06 Dose: 325 mg Furosemide (Lasix Injection -) 40 mg IVPUSH DAILY [facility] Last Admin: 10/29/16 11:06 Dose: 40 mg Metoprolol Tartrate (Lopressor -) 50 mg PO BID [facility] Last Admin: 10/29/16 11:06 Dose: 50 mg Potassium Chloride (K-Dur -) 20 meq PO BID [facility] Last Admin: 10/29/16 11:06 Dose: 20 meq Quetiapine Fumarate (Seroquel -) 12.5 mg PO HS PRN PRN Reason: AGITATION Last Admin: 10/27/16 22:20 Dose: 12.5 mg Rosuvastatin Calcium (Crestor -) 5 mg PO HS [facility] Last Admin: 10/28/16 23:30 Dose: 5 mg Valsartan (Diovan -) 320 mg PO DAILY [facility] Last Admin: 10/29/16 11:06 Dose: 320 mg Warfarin Sodium (Coumadin -) 3 mg PO DAILY@1800 [facility] Last Admin: 10/28/16 17:39 Dose: 3 mg - Objective Vital Signs: Vital Signs Temperature 97.9 F 10/29/16 10:00 Pulse Rate 86 10/29/16 10:00 Respiratory Rate 20 10/29/16 10:00 Blood Pressure 130/71 10/29/16 10:00 O2 Sat by Pulse Oximetry (%) 98 10/29/16 10:00 Constitutional: Yes: Well Nourished, No Distress, Calm Cardiovascular: Yes: Regular Rate and Rhythm. No: Gallop, Murmur, Rub Respiratory: Yes: Regular, CTA Bilaterally. No: Rales, Rhonchi, Wheezes Gastrointestinal: Yes: Normal Bowel Sounds, Soft, Distention. No: Tenderness Extremities: Yes: WNL Edema: No Labs: CBC, BMP 10/29/16 05:40 10/29/16 05:40 INR, PTT INR 2.42 (0.82-1.09) H 10/28/16 05:35 Assessment/Plan (1) Congestive heart failure (CHF) Assessment/Plan: -appreciate cardiology assistance -continue IV lasix today, transition to oral lasix tomorrow -monitor Code(s): I50.9 - HEART FAILURE, UNSPECIFIED Qualifiers: Congestive heart failure type: diastolic (2) Atrial fibrillation with rapid ventricular response Assessment/Plan: -rate controlled -therapeutic on coumadin -continue lopressor Code(s): I48.91 - UNSPECIFIED ATRIAL FIBRILLATION (3) CVA (cerebrovascular accident) Assessment/Plan: -h/o CVA -continue coumadin Code(s): I63.9 - CEREBRAL INFARCTION, UNSPECIFIED (4) Hyperlipidemia Assessment/Plan: -cont statin Code(s): E78.5 - HYPERLIPIDEMIA, UNSPECIFIED (5) Hypertension Assessment/Plan: -on metoprolol and diovan Code(s): I10 - ESSENTIAL (PRIMARY) HYPERTENSION (6) Hypokalemia -change to bid potassium -resolved (7) Constipation -add colace and miralax
[2016-10-29] MEDS: DOCUSATE SODIUM 100 MG CAPSULE (FP) PO SCH ×2 (15:07→22:30)
[2016-10-29] MEDS: POLYETHYLENE GLYCOL 3350 119 GM BTL PO SCH ×2 (16:46→22:26)
[2016-10-29 18:02] LABS: INR 2.83 (0.82-1.09); PROTHROMBIN TIME (PATIENT) 31.8 SEC (9.98-11.88)
[2016-10-29] MEDS: WARFARIN NA 3 MG TABLET PO SCH (18:18)
[2016-10-29] MEDS ORDERED: PT OWN MED DRAWER 7, Y5N ONE (22:29)
[2016-10-29] MEDS: ROSUVASTATIN CA 5 MG TABLET (FP) PO SCH (22:30)
[2016-10-30 08:12] LABS: BASOPHIL 0.5 % (0-2.0); EOSINOPHIL 1.6 % (0-4.5); MCH 32.3 pg (25.7-33.7); MCHC 33.6 g/dl (32.0-36.0); MEAN CELL VOLUME 96.3 fl (80-96); MEAN PLT VOLUME 9.2 fl (7.5-11.1); NEUTROPHILS 68.6 % (42.8-82.8); PLATELET COUNT 161 K/MM3 (134-434); RDW 15.1 % (11.6-15.6); WHITE BLOOD COUNT 7.6 K/mm3 (4.0-10.0)
[2016-10-30 08:19] LABS: INR 2.54 (0.82-1.09); PROTHROMBIN TIME (PATIENT) 28.5 SEC (9.98-11.88)
--- NOTE | 2016-10-30 08:41 | PN ---
Progress Note, Physician History of Present Illness: seen and examined today in nad. no overnight events. no new complaints. - Current Medication List Current Medications: Active Medications Ascorbic Acid (Vitamin C -) 500 mg PO DAILY [facility] Last Admin: 10/29/16 11:05 Dose: 500 mg Aspirin (Asa -) 81 mg PO DAILY [facility] Last Admin: 10/29/16 11:06 Dose: 81 mg Calcium/Vitamin D (Oscal 250 Mg+D -) 1 tab PO DAILY [facility] Last Admin: 10/29/16 11:06 Dose: 1 tab Cholecalciferol (Vitamin D3 -) 400 unit PO DAILY [facility] Last Admin: 10/29/16 11:05 Dose: 400 unit Docusate Sodium (Colace -) 100 mg PO BID [facility] Last Admin: 10/29/16 22:30 Dose: 100 mg Donepezil HCl (Aricept -) 10 mg PO DAILY [facility] Last Admin: 10/29/16 11:06 Dose: 10 mg Ferrous Sulfate (Feosol -) 325 mg PO DAILY [facility] Last Admin: 10/29/16 11:06 Dose: 325 mg Furosemide (Lasix Injection -) 40 mg IVPUSH DAILY [facility] Last Admin: 10/29/16 11:06 Dose: 40 mg Metoprolol Tartrate (Lopressor -) 50 mg PO BID [facility] Last Admin: 10/29/16 22:30 Dose: 50 mg Polyethylene Glycol (Miralax (For Daily Use) -) 17 gm PO BID [facility] Last Admin: 10/29/16 22:26 Dose: Not Given Potassium Chloride (K-Dur -) 20 meq PO BID [facility] Last Admin: 10/29/16 22:30 Dose: 20 meq Quetiapine Fumarate (Seroquel -) 12.5 mg PO HS PRN PRN Reason: AGITATION Last Admin: 10/27/16 22:20 Dose: 12.5 mg Rosuvastatin Calcium (Crestor -) 5 mg PO HS [facility] Last Admin: 10/29/16 22:30 Dose: 5 mg Valsartan (Diovan -) 320 mg PO DAILY [facility] Last Admin: 10/29/16 11:06 Dose: 320 mg Warfarin Sodium (Coumadin -) 3 mg PO DAILY@1800 [facility] Last Admin: 10/29/16 18:18 Dose: 3 mg - Objective Vital Signs: Vital Signs Temperature 98.2 F 10/30/16 06:00 Pulse Rate 93 H 10/30/16 06:00 Respiratory Rate 18 10/30/16 06:00 Blood Pressure 142/80 10/30/16 06:00 O2 Sat by Pulse Oximetry (%) 95 10/30/16 06:00 Constitutional: Yes: Well Nourished, No Distress, Calm Eyes: Yes: WNL, Conjunctiva Clear, EOM Intact, PERRL HENT: Yes: WNL, Atraumatic, Normocephalic Neck: Yes: WNL, Supple, Trachea Midline Cardiovascular: Yes: Pulse Irregular, Murmur, S1, S2. No: Regular Rate and Rhythm, Bradycardia, Tachycardia, Bruit, JVD, Gallop, Rub, S3, S4, Varicosities Respiratory: Yes: WNL, Regular, CTA Bilaterally. No: Rales, Rhonchi, Wheezes Gastrointestinal: Yes: WNL, Normal Bowel Sounds, Soft. No: Distention, Tenderness Musculoskeletal: Yes: WNL Extremities: Yes: WNL Edema: No Peripheral Pulses WNL: Yes Peripheral Pulses: Left Doralis Pedis: 2+, Right Dorsalis Pedis: 2+ Integumentary: Yes: WNL Neurological: Yes: Alert, Oriented Psychiatric: Yes: Alert, Oriented Labs: CBC, BMP 10/30/16 05:38 INR, PTT INR 2.54 (0.82-1.09) H 10/30/16 05:38 - ....Imaging Chest X-ray: Report Reviewed, Image Reviewed EKG: Report Reviewed, Image Reviewed Other: Report Reviewed, Image Reviewed (tele-AFib, HR adequately controlled) Problem List - Problems (1) Afib Code(s): I48.91 - UNSPECIFIED ATRIAL FIBRILLATION Qualifiers: Atrial fibrillation type: chronic Qualified Code(s): I48.2 - Chronic atrial fibrillation (2) CVA (cerebrovascular accident) Code(s): I63.9 - CEREBRAL INFARCTION, UNSPECIFIED (3) Congestive heart failure (CHF) Code(s): I50.9 - HEART FAILURE, UNSPECIFIED Qualifiers: Congestive heart failure type: diastolic (4) Dyspnea on exertion Code(s): R06.09 - OTHER FORMS OF DYSPNEA (5) Hyperlipidemia Code(s): E78.5 - HYPERLIPIDEMIA, UNSPECIFIED (6) Hypertension Code(s): I10 - ESSENTIAL (PRIMARY) HYPERTENSION (7) Peripheral edema Code(s): R60.9 - EDEMA, UNSPECIFIED Assessment/Plan 89 year old woman with a history of HTN, HLD, DM II, LVH, [id number] on cardiac cath 2013, Afib on coumadin, CVA, chronic diastolic CHF admitted with b/l LE edema, dyspnea on exertion. Edema/dyspnea on exertion-likely acute on chronic diastolic CHF -improved significantly, now overall euvolemic -rojas Lasix to 40mg po daily, close outpatient follow up to re-evaluate lasix dose, may need to be downtitrated -cont diovan, lopressor -f/up echo showed normal LVEF but increased atrial size c/w worsened diastolic CHF, elevated EDP (likely chronic) -ok from a cardiac standpoint for discharge planning Atrial fibrillation-HR is adequately controlled -digoxin stopped as outpatient level reportedly elevated with possible contribution to AMS -cont lopressor 50mg po bid -cont coumadin for goal INR 2-3 -ok from a cardiac standpoint for discharge planning HTN-adequately controlled currently -cont diovan and lopressor
[2016-10-30 09:29] LABS: CALCIUM 8.2 mg/dL (8.5-10.1); CREATININE 0.8 mg/dL (0.55-1.02); MAGNESIUM 2.1 mg/dL (1.8-2.4); PHOSPHOROUS 3.3 mg/dL (2.5-4.9)
[2016-10-30] MEDS ORDERED: PT OWN MED DRAWER 7, Y5N ONE ×2 (09:35→21:57)
[2016-10-30] MEDS: CHOLECALCIFEROL (VITAMIN D3) 400 UNIT TABLET (FP) PO SCH (10:00)
[2016-10-30] MEDS: CALCIUM 250MG/VIT-D 125 UNITS 1 COMBO TABLET PO SCH (10:30)
[2016-10-30] MEDS: POTASSIUM CHLORIDE TABS 20 MEQ TABLET.ER (FP) PO SCH ×2 (10:30→22:07)
[2016-10-30] MEDS: DOCUSATE SODIUM 100 MG CAPSULE (FP) PO SCH ×2 (10:30→22:07)
[2016-10-30] MEDS: ASCORBIC ACID 500 MG TABLET (FP) PO SCH (10:30)
[2016-10-30] MEDS: ASPIRIN 81 MG CHEWABLE TABLETS PO SCH (10:30)
[2016-10-30] MEDS: DONEPEZIL HCL 10 MG TABLET (FP) PO SCH (10:30)
[2016-10-30] MEDS: METOPROLOL TARTRATE 50 MG TABLET (FP) PO SCH ×2 (10:30→22:06)
[2016-10-30] MEDS: FERROUS SO4 325 MG TABLET (FP) PO SCH (10:30)
[2016-10-30] MEDS: VALSARTAN 160 MG TABLET (UD) PO SCH (10:30)
[2016-10-30] MEDS: FUROSEMIDE 40 MG TABLET (FP) PO SCH (10:32)
[2016-10-30] MEDS: POLYETHYLENE GLYCOL 3350 119 GM BTL PO SCH ×2 (13:17→21:55)
[2016-10-30] MEDS: WARFARIN NA 3 MG TABLET PO SCH (18:10)
--- NOTE | 2016-10-30 19:13 | PN ---
Progress Note, Physician Chief Complaint: Patient without complaint. No cp, sob, n/v. - Current Medication List Current Medications: Active Medications Ascorbic Acid (Vitamin C -) 500 mg PO DAILY [facility] Last Admin: 10/30/16 10:30 Dose: 500 mg Aspirin (Asa -) 81 mg PO DAILY [facility] Last Admin: 10/30/16 10:30 Dose: 81 mg Calcium/Vitamin D (Oscal 250 Mg+D -) 1 tab PO DAILY [facility] Last Admin: 10/30/16 10:30 Dose: 1 tab Cholecalciferol (Vitamin D3 -) 400 unit PO DAILY [facility] Last Admin: 10/30/16 10:00 Dose: 400 unit Docusate Sodium (Colace -) 100 mg PO BID [facility] Last Admin: 10/30/16 10:30 Dose: 100 mg Donepezil HCl (Aricept -) 10 mg PO DAILY [facility] Last Admin: 10/30/16 10:30 Dose: 10 mg Ferrous Sulfate (Feosol -) 325 mg PO DAILY [facility] Last Admin: 10/30/16 10:30 Dose: 325 mg Furosemide (Lasix -) 40 mg PO DAILY [facility] Last Admin: 10/30/16 10:32 Dose: 40 mg Metoprolol Tartrate (Lopressor -) 50 mg PO BID [facility] Last Admin: 10/30/16 10:30 Dose: 50 mg Polyethylene Glycol (Miralax (For Daily Use) -) 17 gm PO BID [facility] Last Admin: 10/30/16 13:17 Dose: Not Given Potassium Chloride (K-Dur -) 20 meq PO BID [facility] Last Admin: 10/30/16 10:30 Dose: 20 meq Quetiapine Fumarate (Seroquel -) 12.5 mg PO HS PRN PRN Reason: AGITATION Last Admin: 10/27/16 22:20 Dose: 12.5 mg Rosuvastatin Calcium (Crestor -) 5 mg PO HS [facility] Last Admin: 10/29/16 22:30 Dose: 5 mg Valsartan (Diovan -) 320 mg PO DAILY [facility] Last Admin: 10/30/16 10:30 Dose: 320 mg Warfarin Sodium (Coumadin -) 3 mg PO DAILY@1800 [facility] Last Admin: 10/30/16 18:10 Dose: 3 mg - Objective Vital Signs: Vital Signs Temperature 98.2 F 10/30/16 14:30 Pulse Rate 91 H 10/30/16 14:30 Respiratory Rate 20 10/30/16 14:30 Blood Pressure 152/75 10/30/16 14:30 O2 Sat by Pulse Oximetry (%) 96 10/30/16 10:00 Constitutional: Yes: Well Nourished, No Distress, Calm Cardiovascular: Yes: Regular Rate and Rhythm. No: Gallop, Murmur, Rub Respiratory: Yes: Regular, CTA Bilaterally. No: Rales, Rhonchi, Wheezes Gastrointestinal: Yes: Normal Bowel Sounds, Soft. No: Distention, Tenderness Extremities: Yes: WNL Edema: No Labs: CBC, BMP 10/30/16 05:38 10/30/16 05:38 INR, PTT INR 2.54 (0.82-1.09) H 10/30/16 05:38 Assessment/Plan (1) Congestive heart failure (CHF) Assessment/Plan: -appreciate cardiology assistance -changed to oral lasix, safe for discharge from this standpoint Code(s): I50.9 - HEART FAILURE, UNSPECIFIED Qualifiers: Congestive heart failure type: diastolic (2) Atrial fibrillation with rapid ventricular response Assessment/Plan: -rate controlled -therapeutic on coumadin -continue lopressor Code(s): I48.91 - UNSPECIFIED ATRIAL FIBRILLATION (3) CVA (cerebrovascular accident) Assessment/Plan: -h/o CVA -continue coumadin Code(s): I63.9 - CEREBRAL INFARCTION, UNSPECIFIED (4) Hyperlipidemia Assessment/Plan: -cont statin Code(s): E78.5 - HYPERLIPIDEMIA, UNSPECIFIED (5) Hypertension Assessment/Plan: -on metoprolol and diovan Code(s): I10 - ESSENTIAL (PRIMARY) HYPERTENSION (6) Hypokalemia -resolved -change to daily potassium on discharge (7) Constipation -continue colace and miralax Dispo -medically patient is stable for discharge -however spoke to PT who states patient is unsteady and would benefit from SNF placement -case d/w patient and daughter and they agree to SNF placement -discharge to SNF in am
[2016-10-30] MEDS: ROSUVASTATIN CA 5 MG TABLET (FP) PO SCH (22:06)
[2016-10-31 08:25] LABS: INR 2.31 (0.82-1.09); PROTHROMBIN TIME (PATIENT) 25.8 SEC (9.98-11.88)
[2016-10-31] MEDS: ASPIRIN 81 MG CHEWABLE TABLETS PO SCH (09:46)
[2016-10-31] MEDS: CALCIUM 250MG/VIT-D 125 UNITS 1 COMBO TABLET PO SCH (09:46)
[2016-10-31] MEDS: DONEPEZIL HCL 10 MG TABLET (FP) PO SCH (09:46)
[2016-10-31] MEDS: FERROUS SO4 325 MG TABLET (FP) PO SCH (09:46)
[2016-10-31] MEDS: VALSARTAN 160 MG TABLET (UD) PO SCH (09:46)
[2016-10-31] MEDS: ASCORBIC ACID 500 MG TABLET (FP) PO SCH (09:46)
[2016-10-31] MEDS: DOCUSATE SODIUM 100 MG CAPSULE (FP) PO SCH (09:47)
[2016-10-31] MEDS: FUROSEMIDE 40 MG TABLET (FP) PO SCH (09:47)
[2016-10-31] MEDS: METOPROLOL TARTRATE 50 MG TABLET (FP) PO SCH (09:47)
[2016-10-31] MEDS: POTASSIUM CHLORIDE TABS 20 MEQ TABLET.ER (FP) PO SCH (09:47)
[2016-10-31] MEDS: POLYETHYLENE GLYCOL 3350 119 GM BTL PO SCH (09:47)
--- NOTE | 2016-10-31 10:07 | PN ---
Progress Note (short form) - Note Progress Note: Selected Entries 10/31/16 06:00 Temperature 97.2 F L Pulse Rate 110 H Blood Pressure 151/83 Laboratory Tests 10/30/16 10/30/16 10/31/16 05:38 05:38 06:10 WBC 7.6 Hct 43.8 Plt Count 161 INR 2.31 H Potassium 3.9 Creatinine 0.8 Labs, vitals, tele reviewed. INR therapeutic. Heart rate trend is controlled. Patient comfortably sitting in cantor. No objection to discharge from CV standpoint, d/w Dr. Bird.
[2016-10-31] MEDS: CHOLECALCIFEROL (VITAMIN D3) 400 UNIT TABLET (FP) PO SCH (12:22)
--- NOTE | 2016-10-31 12:49 | DS ---
Physical Examination Vital Signs: Vital Signs Temperature 98 F 10/31/16 10:00 Pulse Rate 86 10/31/16 10:00 Respiratory Rate 20 10/31/16 10:00 Blood Pressure 128/60 10/31/16 10:00 O2 Sat by Pulse Oximetry (%) 98 10/31/16 09:00 Constitutional: Yes: Well Nourished, No Distress, Calm Cardiovascular: Yes: Regular Rate and Rhythm. No: Gallop, Murmur, Rub Respiratory: Yes: Regular, CTA Bilaterally. No: Rales, Rhonchi, Wheezes Gastrointestinal: Yes: Normal Bowel Sounds, Soft. No: Distention, Tenderness Extremities: Yes: WNL Edema: No Labs: CBC, BMP 10/30/16 05:38 10/30/16 05:38 Discharge Summary Reason For Visit: AFIB Current Active Problems Afib (Acute) Hospital Course: (1) Congestive heart failure (CHF) Code(s): I50.9 - HEART FAILURE, UNSPECIFIED Qualifiers: Congestive heart failure type: diastolic (2) Atrial fibrillation with rapid ventricular response Code(s): I48.91 - UNSPECIFIED ATRIAL FIBRILLATION (3) CVA (cerebrovascular accident) Code(s): I63.9 - CEREBRAL INFARCTION, UNSPECIFIED (4) Hyperlipidemia Code(s): E78.5 - HYPERLIPIDEMIA, UNSPECIFIED (5) Hypertension Code(s): I10 - ESSENTIAL (PRIMARY) HYPERTENSION (6) Hypokalemia (7) Constipation Ms Maurice is a pleasant 89 year old female who comes in with CHF and afib with rvr. She was admitted to the hospital and seen by cardiology. She was diuresed with IV lasix. Her toprol was increased. She improved significantly. Currently she is doing well and is at baseline. Her potassium was low and this was replaced. She will be discharged on low dose daily potassium since her lasix was increased. She was seen by PT and recommended SNF. She was agreeable to this. She will be discharged to SNF for further therapy. 35 minutes spent in preparation of this discharge Condition: Stable - Instructions Diet, Activity, Other Instructions: low sodium diet. Up with assistance, further activity per PT at SNF. Referrals: Rajan Bird MD [Primary Care Provider] - Disposition: INTERMEDIATE FACILITY - Home Medications Comprehensive Discharge Medication List: Ambulatory Orders Beta-Carotene(A) W-C & E/Min [Ocuvite Tablet] 1 each PO DAILY 07/30/13 Calcium 250Mg/Vit-D 125 Units [Oscal 250 mg+D -] 1 combo PO DAILY 07/30/13 Cholecalciferol (Vitamin D3) [Vitamin D -] 2,000 mg PO DAILY 07/30/13 Glucosa Medina 2Kcl/Chondroitin Medina [Glucosamine & Chondroitin Cap] 1,500 mg PO DAILY 07/30/13 Rosuvastatin [Crestor -] 5 mg PO HS 07/30/13 Warfarin Na [Coumadin -] 3 mg PO HS 03/20/14 Aspirin [ASA -] 81 mg PO DAILY 06/30/14 Olmesartan Medoxomil [Benicar -] 40 mg PO DAILY 10/04/14 Trolamine Salicylate [Aspercreme] 177.4 ml TP PRN 10/04/14 Ascorbate Calcium [Vitamin C] 500 mg PO DAILY 10/26/16 Ferrous Sulfate [Feosol] 325 mg PO DAILY 10/26/16 Levomefolate/Algal Oil [Deplin-Algal Oil 15 mg Capsule] 1 each PO DAILY Donepezil HCl [Aricept -] 10 mg PO HS 10/27/16 Furosemide [Lasix -] 40 mg PO DAILY tablet 10/31/16 Metoprolol Tartrate [Lopressor -] 50 mg PO BID tablet 10/31/16 Potassium Chloride [K-Dur -] 10 meq PO DAILY #30 tablet.er 10/31/16
[2016-10-31 14:33] VITALS: BP 128/84; PULSE 90; TEMP 97.8
== END 2016-10-31 15:12 | DRG 308 ==
LOC: SUPCPDRO 21:16 → JER 21:16 → UNDOADMIN 23:31 → JERBED 23:31 → J4W 10-27 20:47
PROVIDERS: ADMIT Specialist; ATTEND Specialist
DX: I48.91 Unspecified atrial fibrillation (principal); I50.33 Acute on chronic diastolic (congestive) heart failure; I11.0 Hypertensive heart disease with heart failure; I73.89 Other specified peripheral vascular diseases; I10 Essential (primary) hypertension; E78.5 Hyperlipidemia, unspecified; M54.5 Low back pain; R60.9 Edema, unspecified; M48.00 Spinal stenosis, site unspecified; E11.9 Type 2 diabetes mellitus without complications; E87.6 Hypokalemia; K59.09 Other constipation; I25.10 Atherosclerotic heart disease of native coronary artery without angina pectoris; Z79.01 Long term (current) use of anticoagulants; Z86.73 Personal history of transient ischemic attack (TIA), and cerebral infarction without residual deficits; Z87.891 Personal history of nicotine dependence
CPT/HCPCS: 36415; 71010-TC; 80048; 80053; 80162; 81003; 82550; 82553; 83735; 83880; 84100; 84484; 85025; 85610; 87086; 93005; 93010; 93306-TC; 97116-GP; 97161-GP; 99284-25

== ENCOUNTER 2017-01-22 13:43 | Inpatient (IN) | payer OTHER, MEDICARE ==
--- NOTE | 2017-01-22 14:32 | PDOC ---
History of Present Illness <Marcio Moore - Last Filed: 01/22/17 16:52> - General History Source: Patient, Family Exam Limitations: No Limitations - History of Present Illness Initial Comments: 01/22/17 14:36 The patient is an 89-year-old woman, from home, accompanied by daughter, with a significant past medical history of hypertension, hypercholesteroemia, coronary artery disease, atrial fibrillation, congestive heart failure, cerebrovascular accident and diabetes mellitus who presents to the emergency department via walk -in for further evaluation of shortness of breath for the past week. As per family, the patient has been noted to having bilateral leg swelling that has gradually worsen with noted unsteady gait. She has also has been noted to have difficulty breathing for the past few days. and generally fatigued. She states that her symptoms today are similar to two months ago, when she was in this hospital and she was found to be in congestive heart failure. No recent changes in medications. No fever, chills. No chest pain, lightheadedness, dizziness, palpitations, loss of consciousness. No abdominal pain, nausea, vomiting. No urinary complaints. Allergies: Codeine. Penicillin Past Surgical History: Hysterectomy. Social History: Never smoked. No ETOH and recreational drug use. Primary Care Physician: Dr. Rajan Bird [phone] [employer] W[employer] Etcher Stripper: Dr. Dusty Garcia [phone] <Gloria Morse - Last Filed: 01/22/17 16:58> - General Chief Complaint: Shortness of Breath Stated Complaint: SHORTNESS OF BREATH Time Seen by Provider: 01/22/17 14:24 Past History - Past Medical History Cardiac Disorders: Yes (A-FIB, CHF) CVA: Yes Diabetes: Yes HTN: Yes Hypercholesterolemia: Yes - Surgical History Abdominal Surgery: Yes - Psycho/Social/Smoking Cessation Hx Anxiety: No Suicidal Ideation: No Smoking Status: No Smoking History: Never smoked Have you smoked in the past 12 months: No Number of Cigarettes Smoked Daily: 0 If you are a former smoker, when did you quit?: 1970 Information on smoking cessation initiated: No Hx Alcohol Use: No Drug/Substance Use Hx: No Substance Use Type: None Hx Substance Use Treatment: No <Marcio Moore - Last Filed: 01/22/17 16:52> <Gloria Morse - Last Filed: 01/22/17 16:58> - Past Medical History Allergies/Adverse Reactions: Allergies Allergy/AdvReac Type Severity Reaction Status Date / Time codeine [Codeine] Allergy Verified 01/22/17 13:47 Penicillins Allergy Verified 01/22/17 13:47 Home Medications: Ambulatory Orders Beta-Carotene(A) W-C & E/Min [Ocuvite Tablet] 1 each PO DAILY 07/30/13 Calcium 250Mg/Vit-D 125 Units [Oscal 250 mg+D -] 1 combo PO DAILY 07/30/13 Cholecalciferol (Vitamin D3) [Vitamin D -] 2,000 mg PO DAILY 07/30/13 Glucosa Medina 2Kcl/Chondroitin Medina [Glucosamine & Chondroitin Cap] 1,500 mg PO DAILY 07/30/13 Rosuvastatin [Crestor -] 5 mg PO HS 07/30/13 Warfarin Na [Coumadin -] 3 mg PO HS 03/20/14 Aspirin [ASA -] 81 mg PO DAILY 06/30/14 Olmesartan Medoxomil [Benicar -] 40 mg PO HS 10/04/14 Ascorbate Calcium [Vitamin C] 500 mg PO DAILY 10/26/16 Ferrous Sulfate [Feosol] 325 mg PO DAILY 10/26/16 Levomefolate/Algal Oil [Deplin-Algal Oil 15 mg Capsule] 15 mg PO DAILY 10/26/16 Donepezil HCl [Aricept -] 10 mg PO HS 10/27/16 Furosemide [Lasix -] 40 mg PO DAILY tablet 10/31/16 Metoprolol Tartrate [Lopressor -] 50 mg PO BID tablet 10/31/16 Potassium Chloride [K-Dur -] 10 meq PO DAILY #30 tablet.er 10/31/16 Review of Systems - Review of Systems Constitutional: No: Chills, Fever Respiratory: Yes: Cough, Shortness of Breath Cardiac (ROS): Yes: Edema. No: Chest Pain, Lightheadedness, Syncope ABD/GI: No: Vomiting : No: Dysuria All Other Systems: Reviewed and Negative <Marcio Moore - Last Filed: 01/22/17 16:52> *Physical Exam - Vital Signs Last Vital Signs Temp Pulse Resp BP Pulse Ox 97.6 F 102 H 19 135/78 98 01/22/17 13:46 01/22/17 13:46 01/22/17 13:46 01/22/17 13:46 01/22/17 13:46 <Marcio Moore - Last Filed: 01/22/17 16:52> - Vital Signs Last Vital Signs Temp Pulse Resp BP Pulse Ox 97.6 F 102 H 19 135/78 98 01/22/17 13:46 01/22/17 13:46 01/22/17 13:46 01/22/17 13:46 01/22/17 13:46 - Physical Exam Comments: 01/22/17 14:39 GENERAL: The patient is awake, alert, and fully oriented, in no acute distress. HEAD: Normal with no signs of trauma. EYES: Pupils equal, round and reactive to light, extraocular movements intact, sclera anicteric, conjunctiva clear with no pallor. ENT: Ears normal, nares patent, oropharynx clear without exudates. Moist mucous membranes. NECK: Normal range of motion, supple without lymphadenopathy, JVD, or masses. LUNGS: Scant left basilar crackles. HEART: Irregularly, irregular rate and rhythm without murmur or rub. ABDOMEN: Soft/nontender/nondistended. BS wnl. No guarding or rebound. No palpable masses. No hepatosplenomegaly. XTREMITIES: Normal range of motion, no edema. No clubbing or cyanosis. No cords, erythema, or tenderness. NEUROLOGICAL: Cranial nerves II through XII grossly intact. Normal speech. PSYCH: Normal mood, normal affect. SKIN: Warm, Dry, normal turgor, no rashes or lesions noted. <Gloria Morse - Last Filed: 01/22/17 16:58> Heart Score/ECG Review #1 ECG reviewed & interpreted by me at: 15:05 General ECG Interpretation: Normal Rate (afib at 103), Normal Intervals (qtc 466 ), No acute ischemic changes (septal q waves and lead III) Compared to previous ECG there are: No significant change (10/26/16: afib and Q waves unchanged) <Marcio Moore - Last Filed: 01/22/17 16:52> ED Treatment Course - LABORATORY CBC & Chemistry Diagram: 01/22/17 14:49 01/22/17 15:15 <Marcio Moore - Last Filed: 01/22/17 16:52> - LABORATORY CBC & Chemistry Diagram: 01/22/17 14:49 01/22/17 15:15 - RADIOLOGY Radiograph Interpretation: 01/22/17 15:54 EXAM: RAD/CHEST X-RAY PORTABLE IMPRESSION: Since prior chest x-ray dated 10/26/2016, the cardiac silhouette remains slightly enlarged with mild unfolding of the aortic arch. Minimal increased interstitial lung markings, bilaterally. Mediastinum and visualized osseous structures appear intact <Gloria Morse - Last Filed: 01/22/17 16:58> Medical Decision Making - Medical Decision Making 01/22/17 14:53 A portion of this note was documented by scribe services under my direction. I have reviewed the details of the note, within reason, and agree with the documentation with the following case summary and management plan written by me. 89-year-old female with history of atrial fibrillation, CHF presents brought in by daughter with one to 2 weeks of worsening volume overload and now 2-3 days of dyspnea and bilateral leg edema. Compliant with her lasix, no recent dosage changes. no fever/chills. VSS L basilar crackles b/l leg edema abdomen benign 89y/o F with h/o CHF/volume overload p/w recurrence. labs, ua ekg, cxr diuresis sent by Dr. Bird, likely admission 01/22/17 15:57 CBC wnl, Cr normal, trop negative, BNP baseline elevated. INR therapeutic. CXR with interstitial markings but no effusion. Received lasix and diuresing. Will proceed with admission for diuresis, Dr. Hamilton covering [place]. Dr. Garcia, patient's tripe scraper, consulted. <Marcio Moore - Last Filed: 01/22/17 16:52> - Medical Decision Making 01/22/17 15:[address] Hamilton 01/22/17 16:[address] Hamilton. Will call us back in 15 minutes 01/22/17 16:[address] Hamilton 01/22/17 16:[address] Hamilton. Immediate response. Case was discussed. <Gloria Morse - Last Filed: 01/22/17 16:58> *DC/Admit/Observation/Transfer - Discharge Dispostion Admit: Yes <Marcio Moore - Last Filed: 01/22/17 16:52> - Attestations Scribe Attestion: 01/22/17 14:50 Documentation prepared by Gloria Morse, acting as medical record retrieval specialist for Marcio Moore MD. <Gloria Morse - Last Filed: 01/22/17 16:58> Diagnosis at time of Disposition: Peripheral edema Congestive heart failure (CHF) Qualifiers: Congestive heart failure type: unspecified congestive heart failure type Congestive heart failure chronicity: acute on chronic Qualified Code(s): I50.9 - Heart failure, unspecified - Discharge Dispostion Condition at time of disposition: Fair - Referrals Referrals: Rajan Bird MD [Primary Care Provider] -
[2017-01-22] MEDS ORDERED: ASPIRIN 81 MG CHEWABLE TABLETS PO ONE (14:33)
[2017-01-22] MEDS ORDERED: FUROSEMIDE 40 MG/4 ML INJECTABLE VIAL IVPUSH ONE (14:50)
[2017-01-22 15:23] LABS: BASOPHIL 0.6 % (0-2.0); EOSINOPHIL 0.7 % (0-4.5); MCH 32.4 pg (25.7-33.7); MCHC 33.9 g/dl (32.0-36.0); MEAN CELL VOLUME 95.5 fl (80-96); MEAN PLT VOLUME 9.7 fl (7.5-11.1); NEUTROPHILS 75.2 % (42.8-82.8); PLATELET COUNT 147 K/MM3 (134-434); RDW 15.2 % (11.6-15.6); WHITE BLOOD COUNT 5.5 K/mm3 (4.0-10.0)
[2017-01-22] MEDS ORDERED: ASPIRIN 81 MG CHEWABLE TABLETS ONE (15:24)
[2017-01-22] MEDS ORDERED: FUROSEMIDE 40 MG/4 ML INJECTABLE VIAL ONE (15:24)
[2017-01-22 15:38] LABS: INR 2.43 (0.82-1.09); PROTHROMBIN TIME (PATIENT) 27.2 SEC (9.98-11.88)
[2017-01-22 15:49] LABS: ALBUMIN 3.3 g/dl (3.4-5.0); ANION GAP 9 (8-16); BILIRUBIN,TOTAL 0.3 mg/dL (0.2-1.0); CALCIUM 8.2 mg/dL (8.5-10.1); CO2 24 mmol/L (21-32); CREATININE 0.9 mg/dL (0.55-1.02); GLUCOSE,RANDOM 146 mg/dL (74-106); MAGNESIUM 2.2 mg/dL (1.8-2.4); SGOT/AST 38 U/L (15-37); SGPT/ALT 43 U/L (12-78); TOT PROT 6.6 g/dl (6.4-8.2)
[2017-01-22 15:53] LABS: ALK PHOS 72 U/L (45-117); TROPONIN I < 0.02 ng/ml (0.00-0.05)
[2017-01-22 15:57] LABS: URINE APPEARANCE CLEAR; URINE BILIRUBIN NEGATIVE (NEGATIVE); URINE BLOOD NEGATIVE (NEGATIVE); URINE COLOR COLORLESS; URINE GLUCOSE (UA) NEGATIVE (NEGATIVE); URINE KETONE NEGATIVE (NEGATIVE); URINE LEUK ESTERASE NEGATIVE (NEGATIVE); URINE NITRITE NEGATIVE (NEGATIVE); URINE PROTEIN NEGATIVE (NEGATIVE); URINE UROBILINOGEN NEGATIVE E.U./dl (0.2-1.0)
[2017-01-22] MEDS ORDERED: ACETAMINOPHEN 325 MG TABLET (FP) PO PRN (17:00)
[2017-01-22] MEDS ORDERED: WARFARIN NA 1 MG TABLET (FP) ONE (17:11)
[2017-01-22] MEDS: WARFARIN NA 3 MG TABLET PO SCH (17:11)
--- NOTE | 2017-01-22 17:48 | CON.CARD ---
Consult Consult Specialty:: Cardiology Referred by:: ER Reason for Consultation:: SOB/Edema - History of Present Illness Chief Complaint: SOB/edema History of Present Illness: 89 year old woman with a history of HTN, HLD, DM II, Severe LVH, CAD-non- obstructive on cardiac cath 2013, Afib on coumadin, CVA, chronic diastolic CHF admitted with worsening b/l LE edema, sob, TRISTAN. As per pts daughter she has had an increase in her appetite lately and she is eating a lot of foods that she shouldnt be. Over the past week she has noted increasing edema and sob and thus she came to the ER. She was seen and examined in the ER in [facility]. She was already given Lasix and has urinated multiple times. She is feeling better. Denies any chest pain, palpitations, lightheadedness, dizziness, syncope, near syncope. No pnd or orthopnea. 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 Cardio/Vascular: Yes: AFIB, CHF (chronic diastolic), HTN, Hyperlipdemia, Other ( left ventricular hypertrophy) Musculoskeletal: Yes: Chronic low back pain (spinal stenosis), Other (Upper backache) Endocrine: Yes: Diabetes Mellitus ((diet controlled)) - Alcohol/Substance Use Hx Alcohol Use: No - Smoking History Smoking history: Never smoked Have you smoked in the past 12 months: No Aproximately how many cigarettes per day: 0 If you are a former smoker, when did you quit?: 1969 - Social History Usual Living Arrangement: With Child ADL: Family Assistance History of Recent Travel: No Home Medications - Allergies Allergies/Adverse Reactions: Allergies Allergy/AdvReac Type Severity Reaction Status Date / Time codeine [Codeine] Allergy Verified 01/22/17 13:47 Penicillins Allergy Verified 01/22/17 13:47 - Home Medications Home Medications: Ambulatory Orders Beta-Carotene(A) W-C & E/Min [Ocuvite Tablet] 1 each PO DAILY 07/30/13 Calcium 250Mg/Vit-D 125 Units [Oscal 250 mg+D -] 1 combo PO DAILY 07/30/13 Cholecalciferol (Vitamin D3) [Vitamin D -] 2,000 mg PO DAILY 07/30/13 Glucosa Medina 2Kcl/Chondroitin Medina [Glucosamine & Chondroitin Cap] 1,500 mg PO DAILY 07/30/13 Rosuvastatin [Crestor -] 5 mg PO HS 07/30/13 Warfarin Na [Coumadin -] 3 mg PO HS 03/20/14 Aspirin [ASA -] 81 mg PO DAILY 06/30/14 Olmesartan Medoxomil [Benicar -] 40 mg PO HS 10/04/14 Ascorbate Calcium [Vitamin C] 500 mg PO DAILY 10/26/16 Ferrous Sulfate [Feosol] 325 mg PO DAILY 10/26/16 Levomefolate/Algal Oil [Deplin-Algal Oil 15 mg Capsule] 15 mg PO DAILY 10/26/16 Donepezil HCl [Aricept -] 10 mg PO HS 10/27/16 Furosemide [Lasix -] 40 mg PO DAILY tablet 10/31/16 Metoprolol Tartrate [Lopressor -] 50 mg PO BID tablet 10/31/16 Potassium Chloride [K-Dur -] 10 meq PO DAILY #30 tablet.er 10/31/16 Family Disease History - Family Disease History Family Disease History: Heart Disease: Brother ([place]) Review of Systems - Review of Systems Constitutional: reports: Other (increased appetite). denies: No Symptoms, Chills, Diaphoresis, Fever, Lethargy, Loss of Appetite, Malaise, Night Sweats, Unintentional Wgt. Loss, Weakness Eyes: denies: No Symptoms, Blind Spots, Blurred Vision, Double Vision, Eye Pain , Floaters, Photophobia, Recent Change in Vision, Other HENT: denies: No Symptoms, Difficult Swallowing, Ear Discharge, Ear Pain, Epistaxis, Gingival Bleeding, Hearing Loss, Mouth Swelling, Nasal Congestion, Ocular Prosthesis, Throat Pain, Toothache, Ringing in Ears, Other Neck: denies: No Symptoms, Decreased ROM, Lumps, Pain on Movement, Stiffness, Swollen Glands, Tenderness, Other Cardiovascular: reports: Edema, Shortness of Breath. denies: No Symptoms, Chest Pain, Palpitations, Other Respiratory: reports: Exercise Intolerance, SOB, SOB on Exertion. denies: No Symptoms, Cough, Hemoptysis, Orthopnea, PND, Snoring, Wheezing, Other Gastrointestinal: denies: No Symptoms, Abdominal Pain, Bloating, Constipation, Diarrhea, Dysphagia, Indigestion, Melena, Nausea, Rectal Bleeding, Vomiting, Vomiting Blood, Other Genitourinary: denies: No Symptoms, Burning, Discharge, Dysuria, Flank Pain, Frequency, Hematuria, Incontinence, Lesions, Menses, Pain, Testicular Mass, Testicular Pain, Testicular Swelling, Urgency, Vaginal Bleeding, Other Breasts: denies: No Symptoms Reported, See HPI, Breast Implants, Discharge from Nipple, Lumps, Pain, Skin Changes, Other Musculoskeletal: denies: No Symptoms, Back Pain, Crepitus, Decreased ROM, Extremity Pain, Joint Pain, Joint Swelling, Muscle Pain, Muscle Cramps, Muscle Weakness, Other Integumentary: denies: No Symptoms, Blister, Bruising, Change in Color, Eczema, Erythema, Incision, Lesions, Lump, Pallor, Pruritis, Rash, Wound, Other Neurological: denies: No Symptoms, Change in LOC, Change in Speech, Confusion, Dizziness, Headache, Incoordination, Numbness, Parasthesia, Pre-Existing Deficit , Seizure, Syncope, Tremors, Unsteady Gait, Weakness, Other Endocrine: denies: No Symptoms, Excessive Sweating, Flushing, Increased Hunger, Increased Thirst, Intolerance to Cold, Intolerance to Heat, Unexplained Weight Gain, Unexplained Weight Loss, Other Hematology/Lymphatic: denies: No Symptoms, Easily Bruised, Excessive Bleeding, Swollen Glands, Other Psychiatric: denies: No Symptoms, Altered Sleep Pattern, Anxiety, Depression, Hallucinations, Panic, Paranoia, Suicidal, Other - Risk Factors Known Risk Factors: Yes: Age, Hypercholesterolemia, Hypertension Vital Signs: Vital Signs Temperature 97.6 F 01/22/17 13:46 Pulse Rate 102 H 01/22/17 13:46 Respiratory Rate 19 01/22/17 13:46 Blood Pressure 135/78 01/22/17 13:46 O2 Sat by Pulse Oximetry (%) 98 01/22/17 13:46 Constitutional: Yes: Well Nourished, No Distress, Calm Eyes: Yes: WNL, Conjunctiva Clear, EOM Intact, PERRL HENT: Yes: WNL, Atraumatic, Normocephalic Neck: Yes: WNL, Supple, Trachea Midline Respiratory: Yes: Regular, CTA Bilaterally. No: Rales, Rhonchi, Wheezes Gastrointestinal: Yes: WNL, Normal Bowel Sounds, Soft. No: Distention, Tenderness Renal/: Yes: WNL Cardiovascular: Yes: Pulse Irregular. No: Regular Rate and Rhythm, Bradycardia , Tachycardia, Gallop, Rub, Varicosities Carotid Bruit: No PMI: Non-Displaced Heart Sounds: Yes: S1, S2. No: Split S2, S3, S4, Clicks, Gallop, Rub, Bruit Murmur: No: Systolic Murmur, Diastolic Murmur Musculoskeletal: Yes: WNL Extremities: Yes: WNL Edema: Yes Edema: LLE: Trace, RLE: Trace Peripheral Pulses WNL: Yes Peripheral Pulses: 2+ Left Doralis Pedis, 2+ Right Dorsalis Pedis Integumentary: Yes: WNL Neurological: Yes: Alert, Oriented Psychiatric: Yes: Alert, Oriented - Other Data Labs, Other Data: CBC, BMP 01/22/17 14:49 01/22/17 15:15 INR, PTT INR 2.43 (0.82-1.09) H 01/22/17 15:15 Troponin, BNP 01/22/17 15:15 Troponin I < 0.02 B-Natriuretic Peptide 4426.36 H Troponin, BNP 01/22/17 15:15 Troponin I < 0.02 B-Natriuretic Peptide 4426.36 H ekg-Afib 103bpm, inferior infarct, anterior infarct, nonspecific ST abnl Echo: Report Reviewed Prior Cardiac Procedures: Cardiac Catheterization Imaging - Results Chest X-ray: Report Reviewed, Image Reviewed EKG: Report Reviewed, Image Reviewed Other: Report Reviewed, Image Reviewed Problem List - Problems (1) Peripheral edema Code(s): R60.9 - EDEMA, UNSPECIFIED (2) Atrial fibrillation with rapid ventricular response Code(s): I48.91 - UNSPECIFIED ATRIAL FIBRILLATION (3) CVA (cerebrovascular accident) Code(s): I63.9 - CEREBRAL INFARCTION, UNSPECIFIED (4) Hyperlipidemia Code(s): E78.5 - HYPERLIPIDEMIA, UNSPECIFIED (5) Hypertension Code(s): I10 - ESSENTIAL (PRIMARY) HYPERTENSION (6) Acute on chronic diastolic (congestive) heart failure Code(s): I50.33 - ACUTE ON CHRONIC DIASTOLIC (CONGESTIVE) HEART FAILURE Assessment/Plan 89 year old woman with a history of HTN, HLD, DM II, Severe LVH, CAD-non- obstructive on cardiac cath 2013, Afib on coumadin, CVA, chronic diastolic CHF admitted with worsening b/l LE edema, sob, TRISTAN. Edema/dyspnea-acute on chronic diastolic CHF -improved already significantly with 1 dose of IV Lasix in ER -cont IV lasix 40mg daily starting tomorrow -monitor strict I/Os and daily weights -monitor bun/creat, electrolytes and replete as needed -recent echo 10/2016 showed normal LV systolic function, no sig valvular abnl Atrial fibrillation-HR is currently adequately controlled, slightly above goal on presentation -digoxin stopped as outpatient level reportedly elevated with possible contribution to AMS -cont bblocker -cont coumadin for goal INR 2-3 -ok to dc tele HTN-adequately controlled -cont home medical regimen
[2017-01-22] MEDS: ROSUVASTATIN CA 5 MG TABLET (FP) PO SCH (23:30)
[2017-01-22] MEDS ORDERED: METOPROLOL TARTRATE 50 MG TABLET (FP) ONE (23:31)
[2017-01-22] MEDS ORDERED: VALSARTAN 80 MG TABLET (UD) ONE (23:31)
[2017-01-22] MEDS ORDERED: DONEPEZIL HCL 5 MG TABLET (FP) ONE (23:31)
[2017-01-22] MEDS: METOPROLOL TARTRATE 50 MG TABLET (FP) PO SCH (23:38)
[2017-01-22] MEDS: DONEPEZIL HCL 10 MG TABLET (FP) PO SCH (23:38)
[2017-01-22] MEDS: VALSARTAN 160 MG TABLET (UD) PO SCH (23:38)
[2017-01-23 07:46] LABS: BASOPHIL 0.5 % (0-2.0); EOSINOPHIL 1.8 % (0-4.5); MCH 32.4 pg (25.7-33.7); MCHC 34.1 g/dl (32.0-36.0); MEAN CELL VOLUME 95.2 fl (80-96); MEAN PLT VOLUME 9.5 fl (7.5-11.1); NEUTROPHILS 62.6 % (42.8-82.8); PLATELET COUNT 136 K/MM3 (134-434); RDW 15.1 % (11.6-15.6); WHITE BLOOD COUNT 6.5 K/mm3 (4.0-10.0)
[2017-01-23 08:06] LABS: INR 2.52 (0.82-1.09); PROTHROMBIN TIME (PATIENT) 28.3 SEC (9.98-11.88)
--- NOTE | 2017-01-23 09:06 | PN ---
Progress Note, Physician Chief Complaint: feeling better No complaints - Current Medication List Current Medications: Active Medications Acetaminophen (Tylenol -) 650 mg PO Q6H PRN PRN Reason: FEVER OR PAIN Aspirin (Asa -) 81 mg PO DAILY [facility] Cholecalciferol (Vitamin D3 -) 2,000 unit PO DAILY [facility] Donepezil HCl (Aricept -) 10 mg PO HS [facility] Last Admin: 01/22/17 23:38 Dose: 10 mg Furosemide (Lasix Injection -) 40 mg IVPB DAILY [facility] Metoprolol Tartrate (Lopressor -) 50 mg PO BID [facility] Last Admin: 01/22/17 23:38 Dose: 50 mg Pantoprazole Sodium (Protonix -) 40 mg PO DAILY [facility] Potassium Chloride (K-Dur -) 10 meq PO DAILY [facility] Rosuvastatin Calcium (Crestor -) 5 mg PO HS [facility] Last Admin: 01/22/17 23:30 Dose: 5 mg Valsartan (Diovan -) 320 mg PO HS [facility] Last Admin: 01/22/17 23:38 Dose: 320 mg Warfarin Sodium (Coumadin -) 3 mg PO DAILY@18 [facility] Last Admin: 01/22/17 17:11 Dose: 3 mg - Objective Vital Signs: Vital Signs Temperature 97.7 F 01/23/17 07:08 Pulse Rate 74 01/23/17 07:08 Respiratory Rate 17 01/23/17 07:08 Blood Pressure 150/90 01/23/17 07:08 O2 Sat by Pulse Oximetry (%) 94 L 01/23/17 07:08 Constitutional: Yes: No Distress Eyes: Yes: Conjunctiva Clear Cardiovascular: Yes: Pulse Irregular Respiratory: Yes: Other (decreased breath sounds at bases) Gastrointestinal: Yes: Soft Edema: No Neurological: Yes: Alert Labs: CBC, BMP 01/23/17 06:15 INR, PTT INR 2.43 (0.82-1.09) H 01/22/17 15:15 - ....Imaging EKG: Image Reviewed Assessment/Plan 89 year old woman with a history of HTN, HLD, DM II, Severe LVH, CAD-non- obstructive on cardiac cath 2013, Afib on coumadin, CVA, chronic diastolic CHF admitted with worsening b/l LE edema, sob, TRISTAN. Edema/dyspnea-acute on chronic diastolic CHF -cont IV lasix 40mg daily for today, can likely switch to PO tomorrow -monitor strict I/Os and daily weights -monitor bun/creat, electrolytes and replete as needed -recent echo 10/2016 showed normal LV systolic function, no sig valvular abnl Atrial fibrillation-HR is currently adequately controlled, slightly above goal on presentation -digoxin stopped as outpatient level reportedly elevated with possible contribution to AMS -cont bblocker -cont coumadin for goal INR 2-3
[2017-01-23] MEDS ORDERED: PATIENT'S OWN MEDICATION (NON-FORMULARY) (Glucosa Su 2kcl/Chondroitin Su [Glucosamine & Ch PO SCH (10:00)
[2017-01-23] MEDS ORDERED: FUROSEMIDE 40 MG/4 ML INJECTABLE VIAL IVPB SCH (10:00)
[2017-01-23] MEDS: ASPIRIN 81 MG CHEWABLE TABLETS PO SCH (11:39)
[2017-01-23] MEDS: POTASSIUM CHLORIDE TABS 10 MEQ TABLET.ER (FP) PO SCH (11:40)
[2017-01-23] MEDS: PANTOPRAZOLE 40 MG TABLET (FP) PO SCH (11:40)
[2017-01-23] MEDS: METOPROLOL TARTRATE 50 MG TABLET (FP) PO SCH ×2 (11:40→21:31)
[2017-01-23] MEDS: CHOLECALCIFEROL (VITAMIN D3) 1,000 UNIT TABLET (FP) PO SCH (11:41)
[2017-01-23 11:55] VITALS: BMI 26.4
--- NOTE | 2017-01-23 12:23 | HP ---
Admitting History and Physical - Primary Care Physician PCP: Rajan Brid - Admission Chief Complaint: My legs are swollen History of Present Illness: Ms Castro is a pleasant 89 year old female who comes in for fluid overload. She is not exactly sure why she is in the hospital, she says that her legs were swollen but otherwise she feels well. She denies fevers, chills, lightheadedness, dizziness, passing out, weakness, chest pain, shortness of breath, nausea, vomiting, diarrhea, constipation, difficulty or pain on urination. She says she is doing better since her last admission and is stronger. She received IV lasix last night and feels her legs are a lot less swollen today. History Source: Patient Limitations to Obtaining History: No Limitations - Past Medical History FILM DEVELOPER: Yes: CVA Cardiovascular: Yes: AFIB, CHF (chronic diastolic), HTN, Hyperlipdemia, Other ( left ventricular hypertrophy) ...: No Musculoskeletal: Yes: Chronic low back pain (spinal stenosis), Other (Upper backache) Endocrine: Yes: Diabetes Mellitus ((diet controlled)) - Past Surgical History Past Surgical History: Yes: None - Smoking History Smoking history: Former smoker Have you smoked in the past 12 months: No Aproximately how many cigarettes per day: 0 If you are a former smoker, when did you quit?: 1969 - Alcohol/Substance Use Hx Alcohol Use: No History of Substance Use: reports: None - Social History Usual Living Arrangement: Yes: With Child ADL: Family Assistance History of Recent Travel: No Home Medications - Allergies Allergies/Adverse Reactions: Allergies Allergy/AdvReac Type Severity Reaction Status Date / Time codeine [Codeine] Allergy Verified 01/22/17 13:47 Penicillins Allergy Verified 01/22/17 13:47 - Home Medications Home Medications: Ambulatory Orders Beta-Carotene(A) W-C & E/Min [Ocuvite Tablet] 1 each PO DAILY 07/30/13 Calcium 250Mg/Vit-D 125 Units [Oscal 250 mg+D -] 1 combo PO DAILY 07/30/13 Cholecalciferol (Vitamin D3) [Vitamin D -] 2,000 mg PO DAILY 07/30/13 Glucosa Medina 2Kcl/Chondroitin Medina [Glucosamine & Chondroitin Cap] 1,500 mg PO DAILY 07/30/13 Rosuvastatin [Crestor -] 5 mg PO HS 07/30/13 Warfarin Na [Coumadin -] 3 mg PO HS 03/20/14 Aspirin [ASA -] 81 mg PO DAILY 06/30/14 Olmesartan Medoxomil [Benicar -] 40 mg PO HS 10/04/14 Ascorbate Calcium [Vitamin C] 500 mg PO DAILY 10/26/16 Ferrous Sulfate [Feosol] 325 mg PO DAILY 10/26/16 Levomefolate/Algal Oil [Deplin-Algal Oil 15 mg Capsule] 15 mg PO DAILY 10/26/16 Donepezil HCl [Aricept -] 10 mg PO HS 10/27/16 Furosemide [Lasix -] 40 mg PO DAILY tablet 10/31/16 Metoprolol Tartrate [Lopressor -] 50 mg PO BID tablet 10/31/16 Potassium Chloride [K-Dur -] 10 meq PO DAILY #30 tablet.er 10/31/16 Family Disease History - Family Disease History Family Disease History: Heart Disease: Brother ([place]) Review of Systems Findings/Remarks: Full review of systems obtained, as per HPI and otherwise negative Physical Examination Vital Signs: Vital Signs Temperature 97.8 F 01/23/17 11:42 Pulse Rate 79 01/23/17 11:42 Respiratory Rate 20 01/23/17 11:42 Blood Pressure 136/83 01/23/17 11:42 O2 Sat by Pulse Oximetry (%) 98 01/23/17 11:42 Constitutional: Yes: Well Nourished, No Distress, Calm Eyes: Yes: Conjunctiva Clear, EOM Intact, PERRL HENT: Yes: Atraumatic, Normocephalic Cardiovascular: Yes: Pulse Irregular. No: Tachycardia, Gallop, Murmur, Rub Respiratory: Yes: Regular, CTA Bilaterally. No: Rales, Rhonchi, Wheezes Gastrointestinal: Yes: Normal Bowel Sounds, Soft. No: Distention, Tenderness Extremities: Yes: WNL Edema: Yes Edema: LLE: Trace, RLE: Trace Labs: CBC, BMP 01/23/17 06:15 Imaging - Results Chest X-ray: Report Reviewed, Image Reviewed EKG: Image Reviewed Problem List - Problems (1) Acute on chronic diastolic (congestive) heart failure Assessment/Plan: -cardiology following and appreciate assistance -received IV lasix, diuresed well -continue IV lasix currently Code(s): I50.33 - ACUTE ON CHRONIC DIASTOLIC (CONGESTIVE) HEART FAILURE (2) Peripheral edema Assessment/Plan: -much improved -secondary to CHF exacerbation -continue lasix Code(s): R60.9 - EDEMA, UNSPECIFIED (3) Afib Assessment/Plan: -rate controlled -therapeutic INR, continue coumadin -continue metoprolol Code(s): I48.91 - UNSPECIFIED ATRIAL FIBRILLATION Qualifiers: Atrial fibrillation type: chronic Qualified Code(s): I48.2 - Chronic atrial fibrillation (4) CVA (cerebrovascular accident) Assessment/Plan: -continue coumadin Code(s): I63.9 - CEREBRAL INFARCTION, UNSPECIFIED (5) Hyperlipidemia Assessment/Plan: -continue crestor Code(s): E78.5 - HYPERLIPIDEMIA, UNSPECIFIED (6) Hypertension Assessment/Plan: -continue metoprolol and valsartan -also receiving IV lasix -controlled Code(s): I10 - ESSENTIAL (PRIMARY) HYPERTENSION
--- NOTE | 2017-01-23 12:28 | EKG ---
Test Reason : Blood Pressure : / mmHG Vent. Rate : 103 BPM Atrial Rate : 115 BPM P-R Int : 000 ms QRS Dur : 078 ms QT Int : 356 ms P-R-T Axes : 000 055 083 degrees QTc Int : 466 ms ATRIAL FIBRILLATION WITH RAPID VENTRICULAR RESPONSE CANNOT RULE OUT INFERIOR INFARCT , AGE UNDETERMINED CANNOT RULE OUT ANTEROSEPTAL INFARCT (CITED ON OR BEFORE 26-OCT-2016) ABNORMAL ECG WHEN COMPARED WITH ECG OF 26-OCT-2016 22:21, MINIMAL CRITERIA FOR INFERIOR INFARCT ARE NOW PRESENT QUESTIONABLE CHANGE IN INITIAL FORCES OF ANTEROSEPTAL LEADS NONSPECIFIC T WAVE ABNORMALITY HAS REPLACED INVERTED T WAVES IN LATERAL LEADS Confirmed by VAISHNAVI CORBETT, RAMAN ([id number]) on 01/23/2017 12:28:00 PM Referred By: Confirmed By:RAMAN RIGGINS MD
[2017-01-23] MEDS: WARFARIN NA 3 MG TABLET PO SCH (17:33)
[2017-01-23] MEDS ORDERED: PT OWN MED DRAWER 7, Y5N ONE (21:24)
[2017-01-23] MEDS: DONEPEZIL HCL 10 MG TABLET (FP) PO SCH (21:31)
[2017-01-23] MEDS: VALSARTAN 160 MG TABLET (UD) PO SCH (21:31)
[2017-01-23] MEDS: ROSUVASTATIN CA 5 MG TABLET (FP) PO SCH (22:36)
[2017-01-24 07:10] LABS: BASOPHIL 0.6 % (0-2.0); EOSINOPHIL 1.2 % (0-4.5); MCH 32.6 pg (25.7-33.7); MCHC 34.1 g/dl (32.0-36.0); MEAN CELL VOLUME 95.5 fl (80-96); MEAN PLT VOLUME 9.1 fl (7.5-11.1); NEUTROPHILS 58.2 % (42.8-82.8); PLATELET COUNT 147 K/MM3 (134-434); RDW 15.1 % (11.6-15.6); WHITE BLOOD COUNT 6.4 K/mm3 (4.0-10.0)
[2017-01-24 07:43] LABS: CALCIUM 8.9 mg/dL (8.5-10.1); COCKROFT - GAULT 46.291; CREATININE 0.8 mg/dL (0.55-1.02); MAGNESIUM 2.2 mg/dL (1.8-2.4); PHOSPHOROUS 2.9 mg/dL (2.5-4.9)
[2017-01-24 08:03] LABS: INR 2.03 (0.82-1.09); PROTHROMBIN TIME (PATIENT) 22.6 SEC (9.98-11.88)
--- NOTE | 2017-01-24 09:19 | PN ---
Progress Note, Physician History of Present Illness: seen and examined today in nad. delirium overnight, did not sleep well. pt has no knowledge of this this am. awake and alert, no current complaints. daughter at bedside. - Current Medication List Current Medications: Active Medications Acetaminophen (Tylenol -) 650 mg PO Q6H PRN PRN Reason: FEVER OR PAIN Aspirin (Asa -) 81 mg PO DAILY [facility] Last Admin: 01/23/17 11:39 Dose: 81 mg Cholecalciferol (Vitamin D3 -) 2,000 unit PO DAILY [facility] Last Admin: 01/23/17 11:41 Dose: 2,000 unit Donepezil HCl (Aricept -) 10 mg PO HS [facility] Last Admin: 01/23/17 21:31 Dose: 10 mg Furosemide (Lasix Injection -) 40 mg IVPB DAILY [facility] Last Admin: 01/23/17 11:40 Dose: 40 mg Metoprolol Tartrate (Lopressor -) 50 mg PO BID [facility] Last Admin: 01/23/17 21:31 Dose: 50 mg Pantoprazole Sodium (Protonix -) 40 mg PO DAILY [facility] Last Admin: 01/23/17 11:40 Dose: 40 mg Potassium Chloride (K-Dur -) 10 meq PO DAILY [facility] Last Admin: 01/23/17 11:40 Dose: 10 meq Rosuvastatin Calcium (Crestor -) 5 mg PO [facility] Last Admin: 01/23/17 22:36 Dose: 5 mg Valsartan (Diovan -) 320 mg PO HS [facility] Last Admin: 01/23/17 21:31 Dose: 320 mg Warfarin Sodium (Coumadin -) 3 mg PO DAILY@18 [facility] Last Admin: 01/23/17 17:33 Dose: 3 mg - Objective Vital Signs: Vital Signs Temperature 97.9 F 01/24/17 06:00 Pulse Rate 95 H 01/24/17 06:00 Respiratory Rate 18 01/24/17 06:00 Blood Pressure 122/78 01/24/17 06:00 O2 Sat by Pulse Oximetry (%) 96 01/23/17 21:00 Constitutional: Yes: Well Nourished, No Distress, Calm Eyes: Yes: WNL, Conjunctiva Clear, EOM Intact, PERRL HENT: Yes: WNL, Atraumatic, Normocephalic Neck: Yes: WNL, Supple, Trachea Midline Cardiovascular: Yes: Pulse Irregular, S1, S2. No: Regular Rate and Rhythm, Bradycardia, Tachycardia, Bruit, JVD, Gallop, Murmur, Rub, S3, S4, Varicosities Respiratory: Yes: Regular, CTA Bilaterally. No: Rales, Rhonchi, Wheezes Gastrointestinal: Yes: Normal Bowel Sounds, Soft. No: Distention, Tenderness Musculoskeletal: Yes: WNL Extremities: Yes: WNL Edema: No Peripheral Pulses WNL: Yes Peripheral Pulses: Left Doralis Pedis: 2+, Right Dorsalis Pedis: 2+ Integumentary: Yes: WNL Neurological: Yes: Alert Psychiatric: Yes: Alert Labs: CBC, BMP 01/24/17 05:35 01/24/17 05:35 INR, PTT INR 2.03 (0.82-1.09) H 01/24/17 05:35 - ....Imaging Chest X-ray: Report Reviewed, Image Reviewed EKG: Report Reviewed, Image Reviewed Other: Report Reviewed, Image Reviewed (tele-Afib, HR currently adequately controlled, at times above goal overnight likely due to confusion/agitation) Problem List - Problems (1) Peripheral edema Code(s): R60.9 - EDEMA, UNSPECIFIED (2) Atrial fibrillation with rapid ventricular response Code(s): I48.91 - UNSPECIFIED ATRIAL FIBRILLATION (3) CVA (cerebrovascular accident) Code(s): I63.9 - CEREBRAL INFARCTION, UNSPECIFIED (4) Hyperlipidemia Code(s): E78.5 - HYPERLIPIDEMIA, UNSPECIFIED (5) Hypertension Code(s): I10 - ESSENTIAL (PRIMARY) HYPERTENSION (6) Acute on chronic diastolic (congestive) heart failure Code(s): I50.33 - ACUTE ON CHRONIC DIASTOLIC (CONGESTIVE) HEART FAILURE Assessment/Plan 89 year old woman with a history of HTN, HLD, DM II, Severe LVH, CAD-non- obstructive on cardiac cath 2013, Afib on coumadin, CVA, chronic diastolic CHF admitted with worsening b/l LE edema, sob, TRISTAN. Edema/dyspnea-acute on chronic diastolic CHF -now euvolemic -change Lasix back to po, home dose 40mg po daily -recent echo 10/2016 showed normal LV systolic function, no sig valvular abnl -ok for discharge from cardiac standpoint Atrial fibrillation-HR is currently adequately controlled, slightly above goal on presentation and at times of agitation -digoxin stopped as outpatient level reportedly elevated with possible contribution to AMS -cont bblocker -cont coumadin for goal INR 2-3 HTN-adequately controlled -cont diovan, lopressor HLD -cont crestor
[2017-01-24] MEDS: ASPIRIN 81 MG CHEWABLE TABLETS PO SCH (09:26)
[2017-01-24] MEDS: CHOLECALCIFEROL (VITAMIN D3) 1,000 UNIT TABLET (FP) PO SCH (09:26)
[2017-01-24] MEDS: POTASSIUM CHLORIDE TABS 10 MEQ TABLET.ER (FP) PO SCH (09:26)
[2017-01-24] MEDS: PANTOPRAZOLE 40 MG TABLET (FP) PO SCH (09:26)
[2017-01-24] MEDS: METOPROLOL TARTRATE 50 MG TABLET (FP) PO SCH ×2 (09:27→22:32)
[2017-01-24] MEDS: FUROSEMIDE 40 MG TABLET (FP) PO SCH (10:55)
--- NOTE | 2017-01-24 13:14 | DS ---
Physical Examination Vital Signs: Vital Signs Temperature 98.1 F 01/24/17 10:00 Pulse Rate 101 H 01/24/17 10:00 Respiratory Rate 18 01/24/17 10:00 Blood Pressure 125/76 01/24/17 10:00 O2 Sat by Pulse Oximetry (%) 97 01/24/17 09:00 Constitutional: Yes: Well Nourished, No Distress, Calm Cardiovascular: Yes: Pulse Irregular. No: Tachycardia, Gallop, Murmur, Rub Respiratory: Yes: Regular, CTA Bilaterally. No: Rales, Rhonchi, Wheezes Gastrointestinal: Yes: Normal Bowel Sounds, Soft. No: Distention, Tenderness Extremities: Yes: WNL Edema: No Labs: CBC, BMP 01/24/17 05:35 01/24/17 05:35 Discharge Summary Reason For Visit: CHF Current Active Problems Acute on chronic diastolic (congestive) heart failure (Acute) Congestive heart failure (CHF) (Acute) Peripheral edema (Acute) Hospital Course: (1) Acute on chronic diastolic (congestive) heart failure Code(s): I50.33 - ACUTE ON CHRONIC DIASTOLIC (CONGESTIVE) HEART FAILURE (2) Peripheral edema Code(s): R60.9 - EDEMA, UNSPECIFIED (3) Afib Code(s): I48.91 - UNSPECIFIED ATRIAL FIBRILLATION Qualifiers: Atrial fibrillation type: chronic Qualified Code(s): I48.2 - Chronic atrial fibrillation (4) CVA (cerebrovascular accident) Code(s): I63.9 - CEREBRAL INFARCTION, UNSPECIFIED (5) Hyperlipidemia Code(s): E78.5 - HYPERLIPIDEMIA, UNSPECIFIED (6) Hypertension Code(s): I10 - ESSENTIAL (PRIMARY) HYPERTENSION Condition: Stable - Instructions Diet, Activity, Other Instructions: resume previous diet and activity Referrals: Dusty Garcia MD [Staff Physician] - Rajan Bird MD [Primary Care Provider] - Disposition: [facility]/HOME HEALTH CARE - Home Medications Comprehensive Discharge Medication List: Ambulatory Orders Beta-Carotene(A) W-C & E/Min [Ocuvite Tablet] 1 each PO DAILY 07/30/13 Calcium 250Mg/Vit-D 125 Units [Oscal 250 mg+D -] 1 combo PO DAILY 07/30/13 Cholecalciferol (Vitamin D3) [Vitamin D -] 2,000 mg PO DAILY 07/30/13 Glucosa Medina 2Kcl/Chondroitin Medina [Glucosamine & Chondroitin Cap] 1,500 mg PO DAILY 07/30/13 Rosuvastatin [Crestor -] 5 mg PO HS 07/30/13 Warfarin Na [Coumadin -] 3 mg PO HS 03/20/14 Aspirin [ASA -] 81 mg PO DAILY 06/30/14 Olmesartan Medoxomil [Benicar -] 40 mg PO HS 10/04/14 Ascorbate Calcium [Vitamin C] 500 mg PO DAILY 10/26/16 Ferrous Sulfate [Feosol] 325 mg PO DAILY 10/26/16 Levomefolate/Algal Oil [Deplin-Algal Oil 15 mg Capsule] 15 mg PO DAILY 10/26/16 Donepezil HCl [Aricept -] 10 mg PO HS 10/27/16 Furosemide [Lasix -] 40 mg PO DAILY tablet 10/31/16 Metoprolol Tartrate [Lopressor -] 50 mg PO BID tablet 10/31/16 Potassium Chloride [K-Dur -] 10 meq PO DAILY #30 tablet.er 10/31/16
--- NOTE | 2017-01-24 15:04 | PN ---
Progress Note, Physician Chief Complaint: Ms Castro says she is doing well. Denies cp, sob, n/v. States - Current Medication List Current Medications: Active Medications Acetaminophen (Tylenol -) 650 mg PO Q6H PRN PRN Reason: FEVER OR PAIN Aspirin (Asa -) 81 mg PO DAILY [facility] Last Admin: 01/24/17 09:26 Dose: 81 mg Cholecalciferol (Vitamin D3 -) 2,000 unit PO DAILY [facility] Last Admin: 01/24/17 09:26 Dose: 2,000 unit Donepezil HCl (Aricept -) 10 mg PO HS [facility] Last Admin: 01/23/17 21:31 Dose: 10 mg Furosemide (Lasix -) 40 mg PO DAILY [facility] Last Admin: 01/24/17 10:55 Dose: 40 mg Metoprolol Tartrate (Lopressor -) 50 mg PO BID [facility] Last Admin: 01/24/17 09:27 Dose: 50 mg Pantoprazole Sodium (Protonix -) 40 mg PO DAILY [facility] Last Admin: 01/24/17 09:26 Dose: 40 mg Potassium Chloride (K-Dur -) 10 meq PO DAILY [facility] Last Admin: 01/24/17 09:26 Dose: 10 meq Rosuvastatin Calcium (Crestor -) 5 mg PO [facility] Last Admin: 01/23/17 22:36 Dose: 5 mg Valsartan (Diovan -) 320 mg PO [facility] Last Admin: 01/23/17 21:31 Dose: 320 mg Warfarin Sodium (Coumadin -) 3 mg PO DAILY@18 [facility] Last Admin: 01/23/17 17:33 Dose: 3 mg - Objective Vital Signs: Vital Signs Temperature 98.1 F 01/24/17 10:00 Pulse Rate 101 H 01/24/17 10:00 Respiratory Rate 18 01/24/17 10:00 Blood Pressure 125/76 01/24/17 10:00 O2 Sat by Pulse Oximetry (%) 97 01/24/17 09:00 Constitutional: Yes: Well Nourished, No Distress, Calm Cardiovascular: Yes: Pulse Irregular. No: Tachycardia, Gallop, Murmur, Rub Respiratory: Yes: Regular, CTA Bilaterally. No: Rales, Rhonchi, Wheezes Gastrointestinal: Yes: Normal Bowel Sounds, Soft. No: Distention, Tenderness Extremities: Yes: WNL Edema: No Labs: CBC, BMP 01/24/17 05:35 01/24/17 05:35 INR, PTT INR 2.03 (0.82-1.09) H 01/24/17 05:35 Problem List - Problems (1) Acute on chronic diastolic (congestive) heart failure Code(s): I50.33 - ACUTE ON CHRONIC DIASTOLIC (CONGESTIVE) HEART FAILURE (2) Peripheral edema Code(s): R60.9 - EDEMA, UNSPECIFIED (3) Afib Code(s): I48.91 - UNSPECIFIED ATRIAL FIBRILLATION Qualifiers: Atrial fibrillation type: chronic Qualified Code(s): I48.2 - Chronic atrial fibrillation (4) CVA (cerebrovascular accident) Code(s): I63.9 - CEREBRAL INFARCTION, UNSPECIFIED (5) Hyperlipidemia Code(s): E78.5 - HYPERLIPIDEMIA, UNSPECIFIED (6) Hypertension Code(s): I10 - ESSENTIAL (PRIMARY) HYPERTENSION Assessment/Plan (1) Acute on chronic diastolic (congestive) heart failure Assessment/Plan: -cardiology following and appreciate assistance -can change back to oral lasix Code(s): I50.33 - ACUTE ON CHRONIC DIASTOLIC (CONGESTIVE) HEART FAILURE (2) Peripheral edema Assessment/Plan: -much improved -secondary to CHF exacerbation -continue lasix Code(s): R60.9 - EDEMA, UNSPECIFIED (3) Afib Assessment/Plan: -rate controlled -therapeutic INR, continue coumadin -continue metoprolol Code(s): I48.91 - UNSPECIFIED ATRIAL FIBRILLATION Qualifiers: Atrial fibrillation type: chronic Qualified Code(s): I48.2 - Chronic atrial fibrillation (4) CVA (cerebrovascular accident) Assessment/Plan: -continue coumadin Code(s): I63.9 - CEREBRAL INFARCTION, UNSPECIFIED (5) Hyperlipidemia Assessment/Plan: -continue crestor Code(s): E78.5 - HYPERLIPIDEMIA, UNSPECIFIED (6) Hypertension Assessment/Plan: -continue metoprolol and valsartan -controlled Code(s): I10 - ESSENTIAL (PRIMARY) HYPERTENSION (7) Weakness -seen by PT -needed significant amount of assistance for ambulation -unsafe discharge home -discharge to SNF in am
[2017-01-24] MEDS: WARFARIN NA 3 MG TABLET PO SCH (17:39)
[2017-01-24] MEDS: DONEPEZIL HCL 10 MG TABLET (FP) PO SCH (22:32)
[2017-01-24] MEDS: VALSARTAN 160 MG TABLET (UD) PO SCH (22:32)
[2017-01-24] MEDS: ROSUVASTATIN CA 5 MG TABLET (FP) PO SCH (22:46)
[2017-01-25 05:23] VITALS: TEMP 98
[2017-01-25 08:08] LABS: BASOPHIL 0.6 % (0-2.0); EOSINOPHIL 1.7 % (0-4.5); MCH 33.1 pg (25.7-33.7); MCHC 34.8 g/dl (32.0-36.0); MEAN CELL VOLUME 95.3 fl (80-96); MEAN PLT VOLUME 9.2 fl (7.5-11.1); NEUTROPHILS 54.2 % (42.8-82.8); PLATELET COUNT 140 K/MM3 (134-434); WHITE BLOOD COUNT 5.2 K/mm3 (4.0-10.0)
--- NOTE | 2017-01-25 08:21 | PN ---
Progress Note (short form) - Note Progress Note: Seen and examined Chart reviewed Appears comfortable this AM with no complaints. Chest clear CV: irregular but rate controlled Ext: no sig edema Plan: No further inpatient work up planned. Plan for d/c to SNF later today noted.
[2017-01-25 08:58] LABS: CALCIUM 8.1 mg/dL (8.5-10.1); COCKROFT - GAULT 48.195; CREATININE 0.8 mg/dL (0.55-1.02); MAGNESIUM 2.2 mg/dL (1.8-2.4); PHOSPHOROUS 3.1 mg/dL (2.5-4.9)
[2017-01-25] MEDS: ASPIRIN 81 MG CHEWABLE TABLETS PO SCH (09:13)
[2017-01-25] MEDS: METOPROLOL TARTRATE 50 MG TABLET (FP) PO SCH (09:13)
[2017-01-25] MEDS: PANTOPRAZOLE 40 MG TABLET (FP) PO SCH (09:13)
[2017-01-25] MEDS: CHOLECALCIFEROL (VITAMIN D3) 1,000 UNIT TABLET (FP) PO SCH (09:13)
[2017-01-25] MEDS: FUROSEMIDE 40 MG TABLET (FP) PO SCH (09:13)
[2017-01-25] MEDS: POTASSIUM CHLORIDE TABS 10 MEQ TABLET.ER (FP) PO SCH (09:13)
[2017-01-25 11:02] VITALS: BP 118/72; PULSE 90
== END 2017-01-25 10:48 | disposition home health service (06) | DRG 293 ==
LOC: JER 13:43 → JERBED 17:02 → OBSVTOIN 17:02 → JERBED 19:44 → UNDOADMOB 19:44 → J4W 01-23 16:55 → JERBED 01-23 16:55
PROVIDERS: ADMIT Internal Medicine Geriatric Medicine; ATTEND Internal Medicine Geriatric Medicine
DX: I11.0 Hypertensive heart disease with heart failure (principal); I50.33 Acute on chronic diastolic (congestive) heart failure; E78.00 Pure hypercholesterolemia, unspecified; I25.10 Atherosclerotic heart disease of native coronary artery without angina pectoris; I48.91 Unspecified atrial fibrillation; E11.9 Type 2 diabetes mellitus without complications; Z86.73 Personal history of transient ischemic attack (TIA), and cerebral infarction without residual deficits; Z88.0 Allergy status to penicillin; Z79.01 Long term (current) use of anticoagulants; R53.1 Weakness
CPT/HCPCS: 36415; 71010-TC; 80048; 80053; 81003; 82550; 82553; 83735; 83880; 84100; 84484; 85025; 85610; 93005; 93010; 97116-GP; 97161-GP; 99285-25